=== PATIENT | female | born 1985 | race Caucasian/White ===

== ENCOUNTER 2023-01-23 10:30 | Outpatient (OUT) | payer OTHER, SELFPAY ==
--- NOTE | 2023-01-23 10:41 | XR_ITS ---
The [address] [address] Patient Name: GENESIS MORALES MRN: [id number] date: 1985 Sex: F Assigned Patient Location: [facility] Current Patient Location: [facility] Accession/Order Number: [id number] Exam Date: 01/23/2023 10:50 Report Date: 01/23/2023 13:54 At the request of: WILLA SOTOMAYOR Procedure: XR ankle LT min 3V EXAM: XR ankle LT min 3V HISTORY: RIGHT ANKLE PAIN COMPARISON: None. TECHNIQUE: 3 views Findings/impression: Sideplate fixation screws and plate to the distal fibula with comminuted mildly displaced fracture. No significant healing. Sideplate fixation screws and plate to the distal tibia with comminuted mildly displaced fracture. No significant healing. Soft tissue swelling. Electronically authenticated by: LON LUGO Date: 01/23/2023 13:54
== END 2023-01-23 10:31 ==
LOC: RAD 10:31
PROVIDERS: PCP Physician Assistant; Visit Provider Physician Assistant
DX: S82.842A Displaced bimalleolar fracture of left lower leg, initial encounter for closed fracture (principal); X58.XXXA Exposure to other specified factors, initial encounter; Z96.7 Presence of other bone and tendon implants
CPT/HCPCS: 73610

== ENCOUNTER 2023-02-13 09:34 | Outpatient (OUT) | payer OTHER, SELFPAY ==
--- NOTE | 2023-02-13 09:37 | XR_ITS ---
The [address] [address] Patient Name: GENESIS MORALES MRN: [id number] date: 1985 Sex: F Assigned Patient Location: [facility] Current Patient Location: [facility] Accession/Order Number: [id number] Exam Date: 02/13/2023 09:36 Report Date: 02/13/2023 11:13 At the request of: NATALI WU Procedure: XR ankle LT min 3V EXAM: XR ankle LT min 3V HISTORY: Left ankle pain. Recent ORIF. COMPARISON: 01/23/2023. TECHNIQUE: 3 views left ankle. FINDINGS/IMPRESSION: Left tibial and femoral plate and screw ORIF again seen. Expected degree of minimal internal healing of the distal tibial and fibular fractures. On the AP and oblique views, the third most superior fibular internal fixation screw appears in place, although on lateral view may be free floating and not fixated. Also possible decreased apposition of the upper fibular plate on lateral view. Attention on follow-up. Mild residual diffuse soft tissue edema left ankle with intact-appearing mortise. Electronically authenticated by: MENDOZA PEREIRA Date: 02/13/2023 11:13
== END 2023-02-13 09:35 | disposition home or self-care (01) ==
LOC: RAD 09:34
PROVIDERS: PCP Physician Assistant; Visit Provider Physician Assistant
DX: S82.842D Displaced bimalleolar fracture of left lower leg, subsequent encounter for closed fracture with routine healing (principal)
CPT/HCPCS: 73610

== ENCOUNTER 2023-03-06 10:10 | Outpatient (OUT) | payer OTHER, SELFPAY ==
--- NOTE | 2023-03-06 10:14 | XR_ITS ---
The [address] [address] Patient Name: GENESIS MORALES MRN: [id number] date: 1985 Sex: F Assigned Patient Location: [facility] Current Patient Location: [facility] Accession/Order Number: [id number] Exam Date: 03/06/2023 10:13 Report Date: 03/06/2023 11:13 At the request of: ANTALI WU Procedure: XR ankle LT min 3V PROCEDURE: XR ankle LT min 3V DATE: 03/06/2023 9:13 AM CDT COMPARISONS: Plain radiographs from 02/13/2023 and 01/23/2023. Also CT of the ankle 12/26/2022 CLINICAL INDICATION: LEFT ANKLE PAIN FINDINGS: There is evidence of open reduction internal fixation of the distal tibia and fibula. Distal tibial fracture fragments are held in good position and alignment in all projections, stable from previous exam. The ankle mortise remains intact, stable. Fixation plate is noted at lateral aspect distal metadiaphyseal region of the fibula. There is 3 to 4 mm of lateral displacement of the distal fracture fragment. This is slightly better seen than on 02/13/2023. It is similar to 01/23/2023. Overall, the distal fibula appears to be held in good position and alignment. Today's image projection is likely slightly different than previous exam.. XR/XR ankle LT min 3V IMPRESSION: Postop changes left ankle remain stable from previous postop exams. . Electronically authenticated by: RICH VILLANUEVA Date: 03/06/2023 11:13
== END 2023-03-06 10:11 | disposition home or self-care (01) ==
LOC: RAD 10:10
PROVIDERS: Visit Provider Physician Assistant
DX: S93.05XD Dislocation of left ankle joint, subsequent encounter (principal)
CPT/HCPCS: 73610

== ENCOUNTER 2023-03-20 08:31 | Outpatient (OUT) | payer OTHER, SELFPAY ==
--- NOTE | 2023-03-20 08:34 | CT_ITS ---
The [address] [address] Patient Name: GENESIS MORALES MRN: [id number] date: 1985 Sex: F Assigned Patient Location: CT Current Patient Location: CT Accession/Order Number: [id number] Exam Date: 03/20/2023 08:45 Report Date: 03/20/2023 11:11 At the request of: NATALI WU Procedure: CT ankle LT wo con EXAMINATION: CT ankle LT wo con HISTORY: Displaced bimalleolar fracture of left lower leg ; follow-up surgery COMPARISON: XR ankle left 02/13/2023 TECHNIQUE: Multi-planar CT images were created without and/or with IV contrast according to examination type. Dose reduction techniques were achieved by using automated exposure control and/or adjustment of mA and/or kV according to patient size and/or use of iterative reconstruction technique. FINDINGS: BONES: Prior posterior malleolus fracture with increasing density of the fracture line in stable repair via posterior plate and screws. Prior comminuted distal fibular fracture without appreciable callus formation or increased density are fracture lines. Stable plate and screw repair without evidence of hardware fracture or loosening. SOFT TISSUES: Mild subcutaneous edema within the lower ankle and proximal foot. EFFUSION: None visible. OTHER: Negative. CT/CT ankle LT wo con IMPRESSION: 1. Stable surgical changes without hardware failure or change in alignment. 2. No appreciable evidence of osseous healing of the comminuted distal fibula fracture, however, alignment is maintained; continued follow-up recommended. 3. Small amount of early bone healing changes involving the nondisplaced posterior malleolus fracture. Electronically authenticated by: RADHA YARBROUGH Date: 03/20/2023 11:11
== END 2023-03-20 08:32 | disposition home or self-care (01) ==
LOC: CT 08:31
PROVIDERS: Visit Provider Physician Assistant
DX: S82.842D Displaced bimalleolar fracture of left lower leg, subsequent encounter for closed fracture with routine healing (principal); S93.05XD Dislocation of left ankle joint, subsequent encounter
CPT/HCPCS: 73700

== ENCOUNTER 2023-04-16 09:47 | Outpatient (OUT) | payer OTHER, SELFPAY ==
--- NOTE | 2023-04-16 | XR_ITS ---
The [address] [address] Patient Name: GENESIS MORALES MRN: [id number] date: 1985 Sex: F Assigned Patient Location: [facility] Current Patient Location: [facility] Accession/Order Number: [id number] Exam Date: 04/16/2023 10:11 Report Date: 04/16/2023 10:32 At the request of: PHYLLIS CROWLEY Procedure: XR ankle LT min 3V XR ankle LT min 3V, 04/16/2023 10:11 AM EDT, [place]001 INDICATION: LEFT ANKLE PAIN COMPARISON: Radiographs from 03/06/2023 TECHNIQUE: AP, lateral and oblique views of the ankle are submitted. FINDINGS: Evidence of internal plate and screw fixation along the distal tibia and fibula is again noted. The components appear intact and unchanged in alignment. There is evidence of a healing across the distal fibular fracture. No change in alignment is noted. The joint spaces are maintained. There is moderate soft tissue swelling. XR/XR ankle LT min 3V IMPRESSION: Stable status post internal fixation of distal tibial and fibular fractures. No acute fracture or component failure is identified. Moderate soft tissue swelling. Electronically authenticated by: OCHOA STAFFORD Date: 04/16/2023 10:32
== END 2023-04-16 09:48 | disposition home or self-care (01) ==
LOC: RAD 09:47
PROVIDERS: Visit Provider Podiatrist Foot & Ankle Surgery
DX: M25.572 Pain in left ankle and joints of left foot (principal)
CPT/HCPCS: 73610

== ENCOUNTER 2023-05-14 14:07 | Outpatient (OUT) | payer OTHER, SELFPAY ==
--- NOTE | 2023-05-14 | XR_ITS ---
The [address] [address] Patient Name: GENESIS MORALES MRN: [id number] date: 1985 Sex: F Assigned Patient Location: [facility] Current Patient Location: [facility] Accession/Order Number: [id number] Exam Date: 05/14/2023 10:35 Report Date: 05/14/2023 13:21 At the request of: PHYLLIS CROWLEY Procedure: XR ankle LT min 3V STUDY: XR ankle LT min 3V, [id number] HISTORY: LEFT ANKLE PAIN COMPARISON: Left ankle x-rays 04/16/2023. FINDINGS: Plate and screw fixation hardware from the right distal tibia and fibular ORIF is intact and similar alignment compared with 04/16/2023. No new or worsening lucency at the bone hardware interfaces. Mildly displaced obliquely oriented fracture of the distal diaphysis of the fibula is similar. No acute fracture. No dislocation or suspicious osseous lesion. XR/XR ankle LT min 3V IMPRESSION: Similar appearance of the ankle compared with 04/16/2023. No new or worsening bony abnormality demonstrated. Electronically authenticated by: ELMER BAH Date: 05/14/2023 13:21
== END 2023-05-14 14:08 | disposition home or self-care (01) ==
LOC: RAD 14:07
PROVIDERS: Visit Provider Podiatrist Foot & Ankle Surgery
DX: S82.842A Displaced bimalleolar fracture of left lower leg, initial encounter for closed fracture (principal)
CPT/HCPCS: 73610

== ENCOUNTER 2023-06-25 09:30 | Outpatient (OUT) | payer OTHER, SELFPAY ==
--- NOTE | 2023-06-25 | XR_ITS ---
The [address] [address] Patient Name: GENESIS MORALES MRN: [id number] date: 1985 Sex: F Assigned Patient Location: [facility] Current Patient Location: [facility] Accession/Order Number: [id number] Exam Date: 06/25/2023 09:45 Report Date: 06/25/2023 17:58 At the request of: PHYLLIS CROWLEY Procedure: XR ankle LT min 3V Exam: Radiographs: XR ankle LT min 3V Reason for exam: LEFT ANKLE PAIN Comparison: Plain films dated 05/14/2023 XR/XR ankle LT min 3V IMPRESSION: Distal tibia and fibula plate and screw internal fixation, hardware is intact. Distal left fibula fracture remains lucent. Mild left ankle soft tissue swelling. Remainder of the left ankle radiographs is unremarkable. Electronically authenticated by: WILLA BLACK Date: 06/25/2023 17:58
== END 2023-06-25 09:31 | disposition home or self-care (01) ==
LOC: RAD 09:30
PROVIDERS: Visit Provider Podiatrist Foot & Ankle Surgery
DX: M25.572 Pain in left ankle and joints of left foot (principal)
CPT/HCPCS: 73610

== ENCOUNTER 2023-08-13 13:02 | Outpatient (OUT) | payer BC, SELFPAY ==
--- NOTE | 2023-08-13 | XR_ITS ---
[address] [address] Patient Name: GENESIS MORALES MRN: [id number] date: 1985 Sex: F Assigned Patient Location: [facility] Current Patient Location: [facility] Accession/Order Number: [id number] Exam Date: 08/13/2023 13:18 Report Date: 08/15/2023 06:40 At the request of: PHYLLIS CROWLEY Procedure: XR ankle LT min 3V PROCEDURE: XR ankle LT min 3V HISTORY: LEFT ANKLE PAIN COMPARISON: XR ankle left 06/25/2023, 05/14/2023 FINDINGS: BONES:Prior surgical repair of posterior malleolus fracture and distal fibular fracture via plate and screws. Persistent fracture line of the distal fibula without appreciable significant callus formation. No hardware fracture or loosening. SOFT TISSUES:No visible soft tissue swelling. EFFUSION:None visible. OTHER: Negative. XR/XR ankle LT min 3V IMPRESSION: 1. Stable surgical changes without evidence of hardware failure or change in alignment. 2. Persistent incomplete osseous union of the distal fibula; stable to minimal progression. Electronically authenticated by: RADHA YARBROUGH Date: 08/15/2023 06:40
== END 2023-08-13 13:03 | disposition home or self-care (01) ==
LOC: RAD 13:02
PROVIDERS: Visit Provider Podiatrist Foot & Ankle Surgery
DX: S93.05XD Dislocation of left ankle joint, subsequent encounter (principal)
CPT/HCPCS: 73610

== ENCOUNTER 2023-08-21 09:23 | Outpatient (OUT) | payer BC, SELFPAY ==
--- OUTSIDE RECORDS SUMMARY | 2023-08-21 09:26 | XMS_ITS | CCD ---
Author Name Unknown Address [address] [place] [address] Organization [facility] Care Team Providers Care Kier Hand Name Role Phone Unavailable Primary Care Provider UnavailKWAKU Killian Attending Unavailable ROMIE, DR SKY Suarez Admitting Unavailable WEST, DR MARGY Fowler Consulting Unavailable MISC, DR GALARZA Primary Care Unavailable ROMIE, DR SKY Suarez Attending Unavailable ZENON, DR RADHA Newsome Consulting Unavailable ROMIE, DR SKY Suarez Consulting Unavailable PHYLLIS CROWLEY Consulting Unavailable SONIAKAITLIN Consulting Unavailable BRAN ., WILLA RAMÍREZ Consulting Unavailable THOMAS II, PROSPER Consulting Unavailable OHLIGERTARYN Consulting Unavailable HAY ., DR VALENTIN Attending Unavailable HAY ., DR VALENTIN Admitting Unavailable MISC, DR GALARZA Primary Care Unavailable ISABEL ., ROQUE READ Consulting UnavailJOY Allen Consulting Unavailable PHYLLIS CROWLEY Admitting Unavailable PHYLLIS CROWLEY Attending Unavailable MISC, DR GALARZA Primary Care Unavailable PHYLLIS CROWLEY Attending Unavailable MISC, DR GALARZA Primary Care Unavailable ZENON, DR RADHA Newsome Consulting Unavailable PHYLLIS CROWLEY Admitting Unavailable PHYLLIS CROWLEY Consulting Unavailable PHYLLIS CROWLEY Attending Unavailable PHYLLIS CROWLEY Admitting Unavailable WEST, DR MARGY Fowler Consulting Unavailable MISC, DR GALARZA Primary Care Unavailable PHYLLIS CROWLEY Consulting Unavailable NATALI WU Referring Unavailable NATALI WU Referring Unavailable Allergies Allergy Classification Reported Allergen(s) Allergy Type Date of Onset Reaction(s) Facility (1 source) Sulfonamides (Antibiotic) Propensity to adverse reactions to drug 9 Other (See Comments) [place], [place] (1 source) Sulfonamides (Antibiotic) Drug allergy (disorder) 3 [facility] (1 source) Sulfonamides (Antibiotic); Translations: [SULFA (SULFONAMIDE ANTIBIOTICS)] Propensity to adverse reactions to drug (disorder) [facility] Medications Current Medications Medication Drug Class(es) Dates Sig (Normalized) Sig (Original) acetaminophen 325 mg oral tablet (1 source) take 2 tablets by mouth every six hours as needed for pain acetaminophen (TYLENOL) 325 MG tablet Take 650 mg by mouth every 6 hours as needed for Pain 0 Active ibuprofen 800 mg oral tablet (2 sources) Nonsteroidal Anti-inflammatory Drug Start: 07-04-2019 take 1 tablet by mouth every six hours as needed for pain ibuprofen (ADVIL;MOTRIN) 800 MG tablet Take 1 tablet by mouth every 6 hours as needed for Pain 10 tablet 0 07/04/2019 Active Start: 07-04-2019 ibuprofen (ADV IL;MOTRIN) tablet 800 mg Problems Problem Classification Problem Date Documented Da te Episodic/Chronic Anxiety disorders (1 source) Generalized anxiety disorder; Translations: [GENERALIZED ANXIETY DISORDER] Onset: 01-14-2023 Chronic E Codes: Natural/environment (1 source) Overexertion from prolonged static or awkward postures, initial encounter; Translations: [OVEREXERT PROLNG STAT/AWK PST INIT] Onset: 01-14-2023 Episodic Fracture of lower limb (7 sources) Unspecified fracture of lower end of left tibia, initial encounter for closed fracture; Translations: [Displaced fracture of lateral malleolus of left fibula, initial encounter for closed fracture] Onset: 12-25-2022 Episodic Fracture of upper limb (1 source) Closed fracture of triquetral bone of wrist; Translations: [Closed nondisplaced fracture of triquetrum of right wrist, initial encounter] Episodic Joint disorders and dislocations; trauma-related (4 sources) Dislocation of left ankle joint, subsequent encounter; Translations: [DISLOCATION LT ANKLE JOINT SUBSQT] Onset: 12-26-2022 Episodic Other injuries and conditions due to external causes (3 sources) Unspecified injury of left ankle, initial encounter; Translations: [UNSPECIFIED INJURY LT ANKLE INITIAL] Onset: 12-24-2022 Episodic Other non-traumatic joint disorders (4 sources) Pain in left ankle and joints of left foot; Translations: [PAIN IN LEFT ANKLE] Onset: 12-25-2022 Episodic Substance-related disorders (1 source) Nicotine dependence, cigarettes, uncomplicated; Translations: [NICOTINE DEPEND CIGARETTES UNCOMP] Onset: 01-14-2023 Chronic Results Test Name Value Interpretation Reference Range Facil ity CBC AUTO DIFFon 01-02-2023 BASO # 0.1 103/ul Normal 0.0-0.1 [facility] Comment on above: Performed By: #### C BC #### [facility] [address] [address] [address] Jesse Forrest Basophils/100 WBC (Bld) 0.4 % Normal 0.2-2.0 [facility] Comment on above: Performed By: #### C BC #### [facility] [address] [address] [address] Jesse Forrest EO # 0.3 103/ul Normal 0.0-0.7 [facility] Comment on above: Performed By: #### C BC #### [facility] [address] [address] [address] Jesse Forrest Eosinophils/100 WBC (Bld) 3.0 % Normal 0.9-7.0 [facility] Comment on above: Performed By: #### C BC #### [facility] [address] [address] [address] Jesse Forrest Erythrocyte distribution width (RBC) [Ratio] 13.1 % Normal 11.0-15.0 [facility] Comment on above: Performed By: #### C BC #### [facility] [address] [address] [address] Jesse Forrest Hematocrit (Bld) [Volume fraction] 43.1 % Normal 36.0-48.0 [facility] Comment on above: Performed By: #### C BC #### [facility] [address] [address] [address] Jesse Forrest Hemoglobin (Bld) [Mass/Vol] 14.3 g/dL Normal 12.0-16.0 [facility] Comment on above: Performed By: #### C BC #### [facility] [address] [address] [address] Jesse Forrest IG # 0.05 10e3/ul Critically high 0.00-0.03 [facility] Comment on above: Performed By: #### C BC #### [facility] [address] [place] [address] Dr. Jesse Forrest IG % 0.4 % Normal 0.0-0.5 [facility] Comment on above: Performed By: #### C BC #### [facility] [address] [place] [address] Dr. Jesse Forrest LYMPH # 2.4 103/ul Normal 1.2-3.8 [facility] Comment on above: Performed By: #### C BC #### [facility] [address] [place] [address] Dr. Jesse Forrest Lymphocytes/100 WBC (Bld) 21.1 % Normal 20.5-60.0 [facility] Comment on above: Performed By: #### C BC #### [facility] [address] [place] [address] Dr. Jesse Forrest MANUAL DIFF REQ NO Normal [facility] Comment on above: Performed By: #### C BC #### [facility] [address] [place] [address] Dr. Jesse Forrest MCH (RBC) [Entitic mass] 28.4 pg Normal 26.7-34.0 [facility] Comment on above: Performed By: #### C BC #### [facility] [address] [place] [address] Dr. Jesse Forrest MCHC (RBC) [Mass/Vol] 33.2 g/dL Normal 29.9-35.2 [facility] Comment on above: Performed By: #### C BC #### [facility] [address] [place] [address] Dr. Jesse Forrest MCV (RBC) [Entitic vol] 85.7 fL Normal 81.0-99.0 [facility] Comment on above: Performed By: #### C BC #### [facility] [address] [place] [address] Dr. Jesse Forrest MONO # 0.8 103/ul Normal 0.3-0.8 [facility] Comment on above: Performed By: #### C BC #### [facility] [address] [place] [address] Dr. Jesse Forrest Monocytes/100 WBC (Bld) 6.9 % Normal 1.7-12.0 [facility] Comment on above: Performed By: #### C BC #### [facility] [address] [place] [address] Dr. Jesse Forrest NEUT # 7.6 103/ul Critically high 1.4-6.5 [facility] Comment on above: Performed By: #### C BC #### [facility] [address] [place] [address] Dr. Jesse Forrest Neutrophils/100 WBC (Bld) 68.2 % Normal 43.0-75.0 [facility] Comment on above: Performed By: #### C BC #### [facility] [address] [place] [address] Dr. Jesse Forrest Platelet mean volume (Bld) [Entitic vol] 10.3 fL Normal 9.5-13.5 [facility] Comment on above: Performed By: #### C BC #### [facility] [address] [place] [address] Dr. Jesse Forrest PLT 284 103/ul Normal 150-450 [facility] Comment on above: Performed By: #### C BC #### [facility] [address] [place] [address] Dr. Jesse Forrest RBC 5.03 106/ul Normal 4.20-5.40 [facility] Comment on above: Performed By: #### C BC #### [facility] [address] [place] [address] Dr. Jesse Forrest WBC 11.2 103/ul Critically high 4.0-11.0 [facility] Comment on above: Performed By: #### C BC #### [facility] [address] [place] [address] Dr. Jesse Forrest POINT OF CARE GLUCOSEon 05- Glucose [Mass/Vol] 138 mg/dL Critically high 74-106 [facility] Comment on above: Performed By: #### P OCGLUC #### [facility] [address] [place] [address] Dr. Jesse Forrest Glucose [Mass/Vol] 105 mg/dL Normal 74-106 [facility] Comment on above: Performed By: #### P OCGLUC #### [facility] [address] [address] [address] Jesse Forrest PREG HCG QUALon 01-02-2023 , QUAL Negative Normal NEGATIVE [facility] Comment on above: Performed By: #### P REG #### [facility] [address] [address] [address] ANKLE LT WO CONon 023 CT ANKLE LT WO CON EXAMINATION: CT ANKLE LT WO CON HISTORY: Closed bimalleolar fracture COMPARISON: No relevant comparison available. TECHNIQUE: Multi-planar CT images were created without IV contrast. Dose reduction techniques were achieved by using automated exposure control and/or adjustment of mA and/or kV according to patient size and/or use of iterative reconstruction technique. FINDINGS: BONES: Minimally displaced fracture fragments involving the tip and medial margin of the medial malleolus. Mildly displaced and slightly comminuted large fracture fragments involving the posterior malleolus. Markedly comminuted fracture of the distal fibula involving the distal diaphysis, metaphysis, and extension into the distal articular surface; 5 mm posterior displacement of the fracture at level of the distal diaphysis. Talar dome appears normally situated within the tibial plafond. Multiple tiny cortical fragments along the dorsal anterior margin of the talus suggesting avulsion fragments. SOFT TISSUES: Prominent subcutaneous edema surrounding the ankle and proximal foot. EFFUSION: None visible. OTHER: Negative. IMPRESSION: 1. Acute, comminuted trimalleolar fractures as detailed above. Electronically authenticated by: RADHA YARBROUGH Date: 2022-12-27 06:44 Normal [facility] XR TIB_FIB LT 2Von 3 XR TIB_FIB LT 2V EXAM: XR TIB_FIB LT 2V HISTORY: Pain of left ankle joint COMPARISON: None. TECHNIQUE: AP and lateral views on 4 films FINDINGS: There is a comminuted spiral fracture of the distal fibula. The distal fracture fragment shows mild lateral angulation. Also, there is a vertically oriented fracture through the posterior tibial malleolus. There is proximal displacement of the posterior fracture fragment by approximately 3 mm. No definite fracture of the medial malleolus is identified, though could potentially be obscured by overlying cast material. Associated soft tissue swelling. IMPRESSION: Fractures of the lateral and posterior ankle malleoli. Electronically authenticated by: Jasmyn MANRIQUE Date: 2022-12-24 19:27 Normal [facility] XR WRIST RIGHT (MIN 3 VIEWS) on 07-12-2019 XR WRIST RIGHT (MIN 3 VIEWS) Begin Addendum #1 VOICE RECOGNITION ERROR: Second sentence of Findings should state: There is anatomic alignment with questionable triquetral fracture. Original Report EXAM: XR WRIST RIGHT (MIN 3 VIEWS) HISTORY: Reason for exam:->pain s/p fall COMPARISON: None. TECHNIQUE: 3 views of the right wrist. FINDINGS: There is normal mineralization. There is anatomic alignment with a history of triquetral fracture. There is mild soft tissue swelling involving the dorsum of the wrist. IMPRESSION: Questionable triquetral fracture. Recommend correlation for point tenderness. Interpreted by: Marino Garcia MD Signed by: Marino Garcia MD 07/12/19 Edited Result - FINAL Normal [facility] XR WRIST RIGHT (MIN 3 VIEWS) on 07-03-2019 Questionable triquetral fracture. Recommend correlation for point tenderness. [facility] EXAM: XR WRIST RIGHT (MIN 3 VIEWS) HISTORY: Reason for exam:->pain s/p fall COMPARISON: None. TECHNIQUE: 3 views of the right wrist. FINDINGS: There is normal mineralization. There is anatomic alignment with a history of triquetral fracture. There is mild soft tissue swelling involving the dorsum of the wrist. [facility] Incoming Radiant Results From [facility] - 07/03/2019 11:58 PM EST EXAM: XR WRIST RIGHT (MIN 3 VIEWS) HISTORY: Reason for exam:->pain s/p fall COMPARISON: None. TECHNIQUE: 3 views of the right wrist. FINDINGS: There is normal mineralization. There is anatomic alignment with a history of triquetral fracture. There is mild soft tissue swelling involving the dorsum of the wrist. IMPRESSION: Questionable triquetral fracture. Recommend correlation for point tenderness. [facility] Vital Signs Date Time Vital Sign Value Performing Clinician Faci lity 07-03-2019 23:27-0500 Body Temperature 98.49 [degF] [place] 07-03-2019 23:27-0500 BP Diastolic 62 mm[Hg] [place], [place] 07-03-2019 23:27-0500 BP Systolic 128 mm[Hg] [place] 07-03-2019 23:27-0500 Pulse (Heart Rate) 115 /min [place], [place] 07-03-2019 23:27-0500 Pulse Oximetry 100 % [place] 07-03-2019 23:27-0500 Respiratory Rate 17 /min [place] Encounters Encounter Date Encounter Type Care Provider Facility Start: 08-19-2023 ambulatory [facility] Start: 07-21-2023 End: 08-18-2023 ambulatory [facility] Start: 01-03-2023 Encounter for other preprocedural examination PHYLLIS CROWLEY [facility] Start: 01-02-2023 End: 01-03-[address] SKY GRUBBS Facility:[facility] Start: 12-30-2022 End: 12-31-2022 ambulatory PHYLLIS CROWLEY Facility:[facility] Start: 12-30-2022 End: 12-31-2022 Encounter for other preprocedural examination PHYLLIS CROWLEY Facility:[facility] Start: 12-26-2022 End: 12-27-2022 ambulatory PHYLLIS CROWLEY Facility:[facility] Start: 12-25-2022 End: 12-26-2022 [facility] Start: 12-24-2022 End: 12-24-[address] BARBIE BOGGS . Facility:[facility] Start: 07-04-2019 End: 07-04-2019 Emergency department patient visit [facility] [facility] Start: 07-03-2019 End: 07-04-2019 Emergency department patient visit Kwaku Phillips Work Phone: [facility] ED Comment on above: Closed nondisplaced fracture of triquetrum of right wrist, initial encounter (Primary Dx) Procedures Date Procedure Procedure Detail Performing Clinician Start: 07-04-2019 VOLAR OCL SPLINT ARM ALBA PHILLIPS Start: 07-04-2019 Radex wrist complete minimum 3 views KWAKU PHILLIPS Start: 07-03-2019 Radex wrist complete minimum 3 views Kwaku Phillips Work Phone: Plan of Treatment Date Care Activity Detail Author Start: 04-18-2019 Influenza vaccination Flu vaccine (# 1) [place], [place] Start: 2005 Cervical cancer screen Cervical canc er screen [place], [place] Start: 1999 HIV screen HIV screen [place], [place] Start: 1995 DTaP/Tdap/Td vaccine (1 - Tdap) DTaP/Tdap/Td vaccine (1 - Tdap) [place], [place] Start: 1985 Varicella Vaccine (1 of 2 - 2-dose childhood series) Varicella Vaccine (1 of 2 - 2-dose childhood series) [place] Payers Date Payer Category Payer Unknown [id number] 2019 Unknown [facility] xxxxxxxxxx 2019-Present [phone] [address] [place] [address] xxxxxxxxxx [id number] 2019 Unknown [id number] 1984 Unknown [id number] 1984 Unknown [id number] 1984 Unknown [id number] 1984 Unknown [id number] 1984 Unknown [id number] 1984 Unknown [id number] 1984 Unknown [id number] 1984 Unknown [id number] 1959 Unknown [id number] Social History Date Type Detail Facility Start: [facility]03-[facility] [place], [place] History of tobacco use Cigarette Smoker M [place], [place] Start: 07-03-2019 Cigarettes smoked current (pack per day) - Reported [place], [place] Start: 07-03-2019 Alcohol intake Lifetime non-d miguel (finding) [place] Start: 07-03-2019 History SDOH Alcohol Frequency 1 [place], [place] Sex Assigned At Not on file [place] Clinical Note 01-03-2023 Note Date & Type Note Facility 01-03-2023 Note PROCEDURE: XR ANKLE LT MIN 3 V COMPARISON: 01/02/2023, 12/25/2022 HISTORY: Pain FINDINGS: BONES:open reduction and internal fixation of distal tibia and fibular fractures with posterior plates and screws. Stable complex underlying fractures with no interval change. No new fracture or dislocation. SOFT TISSUES:Postsurgical soft tissue swelling and subcutaneous emphysema EFFUSION:None visible. OTHER: Detail obscured by a posterior splint IMPRESSION: Open reduction internal fixation of complex distal tibia and fibula fractures Electronically authenticated by: MARGY NESS Date: 2023-01-03 07:18 [facility] Clinical Note 01-03-2023 Note Date & Type Note Facility 01-03-2023 Note PROCEDURE: XR ANKLE LT 2V HISTORY: Pain ; trimalleolar fracture COMPARISON: XR ankle left 12/25/2022 FINDINGS: BONES:Multiple intraoperative spot fluoroscopic images demonstrate surgical repair of distal fibula and posterior tibial fractures via plate and screws. SOFT TISSUES:Expected intraoperative findings. EFFUSION:None visible. OTHER: Negative. IMPRESSION: 1. Surgical repair of distal fibular fracture. 2. Surgical repair of posterior malleolus fracture. 3. Restored alignment of the tibiotalar joint. Electronically authenticated by: RADHA YARBROUGH Date: 2023-01-03 06:48 [facility] Clinical Note 12-25-2022 Note Date & Type Note Facility 12-25-2022 Note PROCEDURE: XR ANKLE LT MIN 3 V COMPARISON: 12/24/2022 HISTORY: Pain of left ankle joint FINDINGS: BONES:Lucency through the medial malleolus suspicious for a nondisplaced fracture. Complex fracture distal tibia, stable. Posterior malleolus fracture.r ankle instability with widening of the lateral tibiotalar joint space and angulation of the ankle mortise SOFT TISSUES:Diffuse soft tissue swelling EFFUSION:None visible. OTHER: Negative. IMPRESSION: Trimalleolar fracture with ankle instability evidenced by asymmetry of the tibiotalar joint space Electronically authenticated by: MARGY NESS Date: 2022-12-25 17:45 [facility] Discharge Instructions * Attachments The following attachments cannot be sent through Care Everywhere. 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 INFORMATION SOURCE (unrecogn ized section and content) DATE CREATED AUTHOR 07/13/2019 Kavita sinclair DATE CREATED AUTHOR AUTHOR'S ORGANIZ ATION 01/27/2023 [facility] DATE CREATED AUTHOR AUTHOR'S ORGANIZ ATION 08/21/2023 [facility] FOR RECORDS PERTAINING TO PATIENTS WHO ARE OR HAVE BEEN ENROLLED IN A CHEMICAL DEPENDENCY/SUBSTANCEABUSE PROGRAM, SOME INFORMATION MAY BE OMITTED. This clinical summary was aggregated from multiple sources. Caution should be exercised in using it in the provision of clinical care. This summary normalizes information from multiple sources, and as a consequence, information in this document may materially change the coding, format and clinical context of patient data. In addition, data may be omitted in some cases. CLINICAL DECISIONS SHOULD BE BASED ON THE PRIMARY CLINICAL RECORDS. [facility]. provides no warranty or guarantee of the accuracy or completeness of information in this document.
--- NOTE | 2023-08-21 09:28 | CT_ITS ---
The [address] [address] Patient Name: GENESIS MORALES MRN: [id number] date: 1985 Sex: F Assigned Patient Location: CT Current Patient Location: CT Accession/Order Number: [id number] Exam Date: 08/21/2023 09:30 Report Date: 08/21/2023 11:36 At the request of: PHYLLIS CROWLEY Procedure: CT ankle LT wo con Exam Type: CT LEFT ANKLE Exam Date and Time: 08/21/2023 9:30 AM EST Indication: 38 years old Female with left ankle pain, prior ORIF Comparison: Plain radiograph 08/13/2023, prior CT scan 03/20/2023 TECHNIQUE: Axial CT images of the left ankle were obtained without intravenous contrast. Coronal and sagittal reformatted images were obtained. Dose reduction techniques were achieved by using automated exposure control and/or adjustment of mA and/or kV according to patient size and/or use of iterative reconstruction technique. FINDINGS: There are postsurgical changes from ORIF of a distal fibula as well as a distal tibia fracture. The tibial hardware appears intact and properly positioned. There is near completely healed posterior malleolus fracture. There is persistent mild cortical step off of the posterior malleolus of approximately 2 to 3 mm in maximum of the posterior tibial plafond articular surface. Multiple small ossific fragments are noted along the inferior margin the medial malleolus. Unchanged alignment of an incompletely healed distal fibular fracture. Bony callus formation is noted. No significant osseous fusion identified of the fracture margins more distal comminuted aspect of the lateral malleolus fracture is near completely healed. Lucency surrounding the 2 proximal most fibular fixation screws is unchanged. The talar dome is congruent. The bones are osteopenic, likely secondary to disuse. No new fracture identified. CT/CT ankle LT wo con IMPRESSION: 1. Near completely healed posterior malleolus fracture with persistent cortical step off of the posterior tibial plafond articular surface . The tibial hardware appears intact. 2. Unchanged position of the fibular hardware with near completely healed more distal comminuted portion of the fracture. No significant bony bridging of the more proximal aspect of the fracture. Electronically authenticated by: OLGA LIDIA SHARIF Date: 08/21/2023 11:36
== END 2023-08-21 09:24 | disposition home or self-care (01) ==
LOC: CT 09:23
PROVIDERS: Visit Provider Podiatrist Foot & Ankle Surgery
DX: S82.892D Other fracture of left lower leg, subsequent encounter for closed fracture with routine healing (principal); Z98.890 Other specified postprocedural states
CPT/HCPCS: 73700

== ENCOUNTER 2023-09-11 09:53 | Outpatient (OUT) | payer BC, OTHER, SELFPAY ==
--- OUTSIDE RECORDS SUMMARY | 2023-09-11 09:56 | XMS_ITS | CCD ---
Author Name Unknown Address [address] [place] [address] Organization [facility] Care Team Providers Care Clinical Research Analyst Name Role Phone Unavailable Primary Care Provider [...] reactions to drug 9 Other (See Comments) [place], [place] (1 source) Sulfonamides (Antibiotic) Drug allergy (disorder) 3 [facility] (1 source) Sulfonamides (Antibiotic); Translations: [SULFA [...] 01-02-2023 BASO # 0.1 103/ul Normal 0.0-0.1 [facility] Comment on above: Performed By: #### C BC #### [facility] [address] [address] [address] Jesse Forrest Basophils/100 WBC (Bld) 0.4 % Normal 0.2-2.0 [facility] Comment on above: Performed By: #### C BC #### [facility] [address] [address] [address] Jesse Forrest EO # 0.3 103/ul Normal 0.0-0.7 [facility] Comment on above: Performed By: #### C BC #### [facility] [address] [address] [address] Jesse Forrest Eosinophils/100 WBC (Bld) 3.0 % Normal 0.9-7.0 [facility] Comment on above: Performed By: #### C BC #### [facility] [address] [address] [address] Jesse Forrest Erythrocyte distribution width (RBC) [Ratio] 13.1 % Normal 11.0-15.0 [facility] Comment on above: Performed By: #### C BC #### [facility] [address] [address] [address] Jesse Forrest Hematocrit (Bld) [Volume fraction] 43.1 % Normal 36.0-48.0 [facility] Comment on above: Performed By: #### C BC #### [facility] [address] [address] [address] Jesse Forrest Hemoglobin (Bld) [Mass/Vol] 14.3 g/dL Normal 12.0-16.0 [facility] Comment on above: Performed By: #### C BC #### [facility] [address] [address] [address] Jesse Forrest IG # 0.05 10e3/ul Critically high 0.00-0.03 [facility] Comment on above: Performed By: #### C BC #### [facility] [address] [place] [address] Dr. Jesse Forrest IG % 0.4 % Normal 0.0-0.5 [facility] Comment on above: Performed By: #### C BC #### [facility] [address] [place] [address] Dr. Jesse Forrest LYMPH # 2.4 103/ul Normal 1.2-3.8 [facility] Comment on above: Performed By: #### C BC #### [facility] [address] [place] [address] Dr. Jesse Forrest Lymphocytes/100 WBC (Bld) 21.1 % Normal 20.5-60.0 [facility] Comment on above: Performed By: #### C BC #### [facility] [address] [place] [address] Dr. Jesse Forrest MANUAL DIFF REQ NO Normal [facility] Comment on above: Performed By: #### C BC #### [facility] [address] [place] [address] Dr. Jesse Forrest MCH (RBC) [Entitic mass] 28.4 pg Normal 26.7-34.0 [facility] Comment on above: Performed By: #### C BC #### [facility] [address] [place] [address] Dr. Jesse Forrest MCHC (RBC) [Mass/Vol] 33.2 g/dL Normal 29.9-35.2 [facility] Comment on above: Performed By: #### C BC #### [facility] [address] [place] [address] Dr. Jesse Forrest MCV (RBC) [Entitic vol] 85.7 fL Normal 81.0-99.0 [facility] Comment on above: Performed By: #### C BC #### [facility] [address] [place] [address] Dr. Jesse Forrest MONO # 0.8 103/ul Normal 0.3-0.8 [facility] Comment on above: Performed By: #### C BC #### [facility] [address] [place] [address] Dr. Jesse Forrest Monocytes/100 WBC (Bld) 6.9 % Normal 1.7-12.0 [facility] Comment on above: Performed By: #### C BC #### [facility] [address] [place] [address] Dr. Jesse Forrest NEUT # 7.6 103/ul Critically high 1.4-6.5 [facility] Comment on above: Performed By: #### C BC #### [facility] [address] [place] [address] Dr. Jesse Forrest Neutrophils/100 WBC (Bld) 68.2 % Normal 43.0-75.0 [facility] Comment on above: Performed By: #### C BC #### [facility] [address] [place] [address] Dr. Jesse Forrest Platelet mean volume (Bld) [Entitic vol] 10.3 fL Normal 9.5-13.5 [facility] Comment on above: Performed By: #### C BC #### [facility] [address] [place] [address] Dr. Jesse Forrest PLT 284 103/ul Normal 150-450 [facility] Comment on above: Performed By: #### C BC #### [facility] [address] [place] [address] Dr. Jesse Forrest RBC 5.03 106/ul Normal 4.20-5.40 [facility] Comment on above: Performed By: #### C BC #### [facility] [address] [place] [address] Dr. Jesse Forrest WBC 11.2 103/ul Critically high 4.0-11.0 [facility] Comment on above: Performed By: #### C BC #### [facility] [address] [place] [address] Dr. Jesse Forrest POINT OF CARE GLUCOSEon 05- Glucose [Mass/Vol] 138 mg/dL Critically high 74-106 [facility] Comment on above: Performed By: #### P OCGLUC #### [facility] [address] [place] [address] Dr. Jesse Forrest Glucose [Mass/Vol] 105 mg/dL Normal 74-106 [facility] Comment on above: Performed By: #### P OCGLUC #### [facility] [address] [address] [address] Jesse Forrest PREG HCG QUALon 01-02-2023 , QUAL Negative Normal NEGATIVE [facility] Comment on above: Performed By: #### P REG #### [facility] [address] [address] [address] ANKLE LT WO [...] by: RADHA YARBROUGH Date: 2022-12-27 06:44 Normal [facility] XR TIB_FIB LT 2Von 3 XR TIB_FIB [...] Jasmyn MANRIQUE Date: 2022-12-24 19:27 Normal [facility] XR WRIST RIGHT (MIN 3 VIEWS) [...] MD 07/12/19 Edited Result - FINAL Normal [facility] XR WRIST RIGHT (MIN 3 VIEWS) on 07-03-2019 Questionable triquetral fracture. Recommend correlation for point tenderness. [facility]ENTER[facility]aign[facility]CRM EXAM: XR WRIST RIGHT (MIN 3 VIEWS) HISTORY: Reason for exam:->pain s/p fall COMPARISON: None. TECHNIQUE: 3 views of the right wrist. FINDINGS: There is normal mineralization. There is anatomic alignment with a history of triquetral fracture. There is mild soft tissue swelling involving the dorsum of the wrist. [facility] [place], Mhpn Incoming Radiant Results From [employer] - 07/03/2019 11:58 PM EST EXAM: XR WRIST RIGHT (MIN 3 VIEWS) HISTORY: Reason for exam:->pain s/p fall COMPARISON: None. TECHNIQUE: 3 views of the right wrist. FINDINGS: There is normal mineralization. There is anatomic alignment with a history of triquetral fracture. There is mild soft tissue swelling involving the dorsum of the wrist. IMPRESSION: Questionable triquetral fracture. Recommend correlation for point tenderness. [email or web address] [facility]aign[facility]CR[facility] Vital Signs Date Time Vital Sign Value Performing Clinician Faci lity 07-03-2019 23:27-0500 Body Temperature 98.49 [degF] [place], [place] 07-03-2019 23:27-0500 BP Diastolic 62 mm[Hg] [place], [place] 07-03-2019 23:27-0500 BP Systolic 128 mm[Hg] [place] 07-03-2019 23:27-0500 Pulse (Heart Rate) 115 /min [place], [place] 07-03-2019 23:27-0500 Pulse Oximetry 100 % [place], [place] 07-03-2019 23:27-0500 Respiratory Rate 17 /min [place] Encounters Encounter Date Encounter Type Care Provider Facility Start: 08-19-2023 ambulatory [facility] Start: 07-21-2023 End: 08-18-2023 ambulatory [facility] Start: 01-03-2023 Encounter for other preprocedural examination PHYLLIS CROWLEY [facility] Start: 01-02-2023 End: 01-03-[address] SKY GRUBBS Facility:[facility] Start: 12-30-2022 End: 12-31-2022 ambulatory PHYLLIS CROWLEY Facility:[facility] Start: 12-30-2022 End: 12-31-2022 Encounter for other preprocedural examination PHYLLIS CROWLEY Facility:[facility] Start: 12-26-2022 End: 12-27-2022 ambulatory PHYLLIS CROWLEY Facility:[facility] Start: 12-25-2022 End: 12-26-2022 [facility] Start: 12-24-2022 End: 12-24-[address] BARBIE BOGGS . Facility:[facility] Start: 07-04-2019 End: 07-04-2019 Emergency department patient visit [facility] Start: 07-03-2019 End: 07-04-2019 Emergency department patient visit Kwaku Phillips Work Phone: [facility] ED Comment on above: Closed nondisplaced [...] 04-18-2019 Influenza vaccination Flu vaccine (# 1) [place], [place] Start: 2005 Cervical cancer screen Cervical canc er screen [place], [place] Start: 1999 HIV screen HIV screen [place], [place] Start: 1995 DTaP/Tdap/Td vaccine (1 - Tdap) DTaP/Tdap/Td vaccine (1 - Tdap) [place], [place] Start: 1985 Varicella Vaccine (1 of 2 - 2-dose childhood series) Varicella Vaccine (1 of 2 - 2-dose childhood series) [place] Payers Date Payer Category Payer Unknown [id number] 2019 Unknown [facility] xxxxxxxxxx 2019-Present [phone] [address] [place] [address] xxxxxxxxxx [id number] 2019 Unknown [id number] 1984 Unknown [id number] 1984 Unknown [id number] 1984 Unknown [id number] 1984 Unknown [id number] 1984 Unknown [id number] 1984 Unknown [id number] 1984 Unknown [id number] 1984 Unknown [id number] 1959 Unknown [id number] Social History Date Type Detail Facility Start: [facility]-03-[facility] [place] History of tobacco use Cigarette Smoker M [place], [place] Start: 07-03-2019 Cigarettes smoked current (pack per day) - Reported [place] Start: 07-03-2019 Alcohol intake Lifetime non-d miguel (finding) [place] Start: 07-03-2019 History SDOH Alcohol Frequency 1 [place], [place] Sex Assigned At Not on file [place] Clinical Note 01-03-2023 Note Date & [...] authenticated by: MARGY NESS Date: 2023-01-03 07:18 [facility] Clinical Note 01-03-2023 Note Date & Type [...] by: RADHA YARBROUGH Date: 2023-01-03 06:48 [facility] Clinical Note 12-25-2022 Note Date & Type [...] by: MARGY NESS Date: 2022-12-25 17:45 [facility] Discharge Instructions * Attachments The following attachments cannot be sent through Care Everywhere. * Splint or Immobilizer Use (Maltese) documented in this encounter Assessments Diagnosis Closed nondisplaced fracture of triquetrum of right wrist, initial encounter- Primary Advance Directives No Advanced Directives Records FoundDocuments on File Type Date Recorded Patient Clinical Data Assistant Expl anation Advance Directives and Living Will Power of Telephone Instrument Supervisor Summary Purpose Family History No Family History [...] CREATED AUTHOR AUTHOR'S ORGANIZ ATION 01/27/2023 [facility] DATE CREATED AUTHOR AUTHOR'S ORGANIZ ATION 08/21/2023 [facility] FOR RECORDS PERTAINING TO PATIENTS WHO [...] BE BASED ON THE PRIMARY CLINICAL RECORDS. [facility] [employer] [facility]. provides no warranty or guarantee of the accuracy or completeness of information in this document.
--- NOTE | 2023-09-11 10:57 | P.GSHP_ITS ---
History of Present Illness History of Present Illness Chief complaint: Displaced Fracture lateral malleolus left Fibula Narrative: Patient presents for preadmission testing. Please see HPI from Dr. Quintanilla dated 08/26/2023. Review of Systems ROS Narrative Please see ROS from Dr. Quintanilla dated 08/26/2023. [facility] Medical History (Updated 09/11/23 @ 10:58 by Yu Mena NP) Pain due to internal prosthetic device ?T85.848A - Pain due to other internal prosthetic devices, implants and grafts, initial encounter (ICD-10) Sprain of tibiofibular ligament of left ankle ?S93.432A - Sprain of tibiofibular ligament of left ankle, initial encounter (ICD-10) Closed fracture of malleolus with nonunion ?S82.899K - Other fracture of unspecified lower leg, subsequent encounter for closed fracture with nonunion (ICD-10) Displaced fracture of lateral malleolus ?S82.63XA - Displaced fracture of lateral malleolus of unspecified fibula, initial encounter for closed fracture (ICD-10) Depression ?F32.A - Depression, unspecified (ICD-10) Anxiety ?F41.9 - Anxiety disorder, unspecified (ICD-10) COVID-19 ?U07.1 - COVID-19 (ICD-10) Heartburn ?R12 - Heartburn (ICD-10) Postoperative nausea and vomiting ?R11.2 - Nausea with vomiting, unspecified (ICD-10) ?Z98.890 - Other specified postprocedural states (ICD-10) Surgical History (Updated 09/11/23 @ 10:22 by Yu Mena NP) History of section ?Z98.891 - History of uterine scar from previous surgery (ICD-10) History of ankle surgery (01/02/23) ?Z98.890 - Other specified postprocedural states (ICD-10) Social History (Updated 09/11/23 @ 10:16 by Yu Mena NP) Within the past year, how often did you have a drink containing alcohol: monthly or less Smoking status: Former smoker 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 Highest level of school completed/degree received: some college, no degree Meds Home Medications and Allergies Home Medications Medication Instructions Recorded Confirmed Type bupropion HCl 150 mg 24 hr tablet, 150 mg PO DAILY 09/11/23 09/11/23 History extended release buspirone 5 mg tablet 5 mg PO BID 09/11/23 09/11/23 History cholecalciferol (vitamin D3) 25 3,000 unit PO DAILY 09/11/23 09/11/23 History mcg (1,000 unit) tablet multivitamin (Daily Multi-Vitamin 1 tab PO DAILY 09/11/23 09/11/23 History tablet) Allergies Allergy/AdvReac Type Severity Reaction Status Date / Time Sulfa (Sulfonamide Allergy Hives Verified 09/11/23 10:12 Antibiotics) Exam Narrative Exam Narrative: Constitutional: Awake, alert, comfortable, well-appearing, nontoxic, interactive, vital signs as charted Head: Normocephalic, atraumatic Neck: Supple, normal appearance, normal range of motion, no meningeal signs, no lymphadenopathy Respiratory: No respiratory distress, breath sounds clear Cardiovascular: Regular rate and rhythm, strong and regular heart tones Skin: No rashes or induration, no lesions, only visible skin inspected Neuro: No neurological deficits, normal sensation Psychiatric: Oriented ?3, normal affect Assessment and Plan Assessment and Plan (1) Displaced fracture of lateral malleolus: (2) Closed fracture of malleolus with nonunion: (3) Sprain of tibiofibular ligament of left ankle: (4) Pain due to internal prosthetic device: Plan Excision of left fibular nonunion, ORIF of fibula, removal of hardware, stress exam under anesthesia, ligament repairs as needed scheduled with Dr. Quintanilla 09/22/2023.
== END 2023-09-11 09:54 | disposition home or self-care (01) ==
PROVIDERS: Visit Provider Podiatrist Foot & Ankle Surgery
DX: Z01.818 Encounter for other preprocedural examination (principal); S82.62XK Displaced fracture of lateral malleolus of left fibula, subsequent encounter for closed fracture with nonunion; T85.848A Pain due to other internal prosthetic devices, implants and grafts, initial encounter
CPT/HCPCS: G0463

== ENCOUNTER 2023-09-22 07:04 | Day surgery (SDC) | payer OTHER, SELFPAY ==
[2023-09-11 10:49] VITALS: BP 122/81; PULSE 64; RESP 18; TEMP 36.3; O2SAT 96; BMI 39.4
[2023-09-22] VITALS (9 sets, daily range): BP systolic 104–156; BP diastolic 56–89; PULSE 93–130; RESP 14–20; TEMP 37.3; O2SAT 93–96; BMI 39.4
--- NOTE | 2023-09-22 | FL_ITS ---
[address] [address] Patient Name: GENESIS MORALES MRN: [id number] date: 1985 Sex: F Assigned Patient Location: SURGOUT Current Patient Location: [facility] Accession/Order Number: [id number] Exam Date: 09/22/2023 09:39 Report Date: 09/22/2023 12:36 At the request of: PHYLLIS CROWLEY Procedure: FL fluoroscopy <1hr NON-READ EXAM: FL fluoroscopy <1hr NON-READ HISTORY: TECHNIQUE: FINDINGS: Please see Operative Report. Electronically authenticated by: RADIOLOGIST NO Date: 09/22/2023 12:36
--- OUTSIDE RECORDS SUMMARY | 2023-09-22 07:08 | XMS_ITS | CCD ---
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 Role Phone Unavailable Primary Care Provider [...] Care Unavailable ISABEL ., ROQUE READ Consulting Unav[employer]JYO [employer] Unavailable PHYLLIS CROWLEY Admitting Unavailable [...] reactions to drug 9 Other (See Comments) [place], [place] (1 source) Sulfonamides (Antibiotic) Drug allergy (disorder) 3 [facility] Repository (1 source) Sulfonamides (Antibiotic); Translations: [SULFA [...] 01-02-2023 BASO # 0.1 103/ul Normal 0.0-0.1 [facility] Comment on above: Performed By: #### C BC #### [facility] [address] [address] [address] Jesse Forrest Basophils/100 WBC (Bld) 0.4 % Normal 0.2-2.0 [facility] Comment on above: Performed By: #### C BC #### [facility] [address] [address] [address] Jesse Forrest EO # 0.3 103/ul Normal 0.0-0.7 [facility] Comment on above: Performed By: #### C BC #### [facility] [address] [address] [address] Jesse Forrest Eosinophils/100 WBC (Bld) 3.0 % Normal 0.9-7.0 [facility] Comment on above: Performed By: #### C BC #### [facility] [address] [address] [address] Jesse Forrest Erythrocyte distribution width (RBC) [Ratio] 13.1 % Normal 11.0-15.0 [facility] Comment on above: Performed By: #### C BC #### [facility] [address] [address] [address] Jesse Forrest Hematocrit (Bld) [Volume fraction] 43.1 % Normal 36.0-48.0 [facility] Comment on above: Performed By: #### C BC #### [facility] [address] [address] [address] Jesse Forrest Hemoglobin (Bld) [Mass/Vol] 14.3 g/dL Normal 12.0-16.0 [facility] Comment on above: Performed By: #### C BC #### [facility] [address] [address] [address] Jesse Forrest IG # 0.05 10e3/ul Critically high 0.00-0.03 [facility] Comment on above: Performed By: #### C BC #### [facility] [address] [place] [address] Dr. Jesse Forrest IG % 0.4 % Normal 0.0-0.5 [facility] Comment on above: Performed By: #### C BC #### [facility] [address] [place] [address] Dr. Jesse Forrest LYMPH # 2.4 103/ul Normal 1.2-3.8 [facility] Comment on above: Performed By: #### C BC #### [facility] [address] [place] [address] Dr. Jesse Forrest Lymphocytes/100 WBC (Bld) 21.1 % Normal 20.5-60.0 [facility] Comment on above: Performed By: #### C BC #### [facility] [address] [place] [address] Dr. Jesse Forrest MANUAL DIFF REQ NO Normal [facility] Comment on above: Performed By: #### C BC #### [facility] [address] [place] [address] Dr. Jesse Forrest MCH (RBC) [Entitic mass] 28.4 pg Normal 26.7-34.0 [facility] Comment on above: Performed By: #### C BC #### [facility] [address] [place] [address] Dr. Jesse Forrest MCHC (RBC) [Mass/Vol] 33.2 g/dL Normal 29.9-35.2 [facility] Comment on above: Performed By: #### C BC #### [facility] [address] [place] [address] Dr. Jesse Forrest MCV (RBC) [Entitic vol] 85.7 fL Normal 81.0-99.0 [facility] Comment on above: Performed By: #### C BC #### [facility] [address] [place] [address] Dr. Jesse Forrest MONO # 0.8 103/ul Normal 0.3-0.8 [facility] Comment on above: Performed By: #### C BC #### [facility] [address] [place] [address] Dr. Jesse Forrest Monocytes/100 WBC (Bld) 6.9 % Normal 1.7-12.0 [facility] Comment on above: Performed By: #### C BC #### [facility] [address] [place] [address] Dr. Jesse Forrest NEUT # 7.6 103/ul Critically high 1.4-6.5 [facility] Comment on above: Performed By: #### C BC #### [facility] [address] [place] [address] Dr. Jesse Forrest Neutrophils/100 WBC (Bld) 68.2 % Normal 43.0-75.0 [facility] Comment on above: Performed By: #### C BC #### [facility] [address] [place] [address] Dr. Jesse Forrest Platelet mean volume (Bld) [Entitic vol] 10.3 fL Normal 9.5-13.5 [facility] Comment on above: Performed By: #### C BC #### [facility] [address] [place] [address] Dr. Jesse Forrest PLT 284 103/ul Normal 150-450 [facility] Comment on above: Performed By: #### C BC #### [facility] [address] [place] [address] Dr. Jesse Forrest RBC 5.03 106/ul Normal 4.20-5.40 [facility] Comment on above: Performed By: #### C BC #### [facility] [address] [place] [address] Dr. Jesse Forrest WBC 11.2 103/ul Critically high 4.0-11.0 [facility] Comment on above: Performed By: #### C BC #### [facility] [address] [place] [address] Dr. Jesse Forrest POINT OF CARE GLUCOSEon 05- Glucose [Mass/Vol] 138 mg/dL Critically high 74-106 [facility] Comment on above: Performed By: #### P OCGLUC #### [facility] [address] [place] [address] Dr. Jesse Forrets Glucose [Mass/Vol] 105 mg/dL Normal 74-106 [facility] Comment on above: Performed By: #### P OCGLUC #### [facility] [address] [address] [address] Jesse Forrest PREG HCG QUALon 01-02-2023 , QUAL Negative Normal NEGATIVE [facility] Comment on above: Performed By: #### P REG #### [facility] [address] [address] [address] ANKLE LT WO [...] by: RADHA YARBROUGH Date: 2022-12-27 06:44 Normal [facility] XR TIB_FIB LT 2Von 3 [...] Jasmyn MANRIQUE Date: 2022-12-24 19:27 Normal [facility] XR WRIST RIGHT (MIN 3 VIEWS) on [...] MD 07/12/19 Edited Result - FINAL Normal [facility] XR WRIST RIGHT (MIN 3 VIEWS) on 07-03-2019 Questionable triquetral fracture. Recommend correlation for point tenderness. [facility] [email or web address] MEDICAL CENTERTrendrating EXAM: XR WRIST RIGHT (MIN 3 VIEWS) HISTORY: Reason for exam:->pain s/p fall COMPARISON: None. TECHNIQUE: 3 views of the right wrist. FINDINGS: There is normal mineralization. There is anatomic alignment with a history of triquetral fracture. There is mild soft tissue swelling involving the dorsum of the wrist. [facility] Center[facility] [place], Mhpn Incoming Radiant Results From [employer] - 07/03/2019 11:58 PM EST EXAM: XR WRIST RIGHT (MIN 3 VIEWS) HISTORY: Reason for exam:->pain s/p fall COMPARISON: None. TECHNIQUE: 3 views of the right wrist. FINDINGS: There is normal mineralization. There is anatomic alignment with a history of triquetral fracture. There is mild soft tissue swelling involving the dorsum of the wrist. IMPRESSION: Questionable triquetral fracture. Recommend correlation for point tenderness. [facility] SD[facility] Vital Signs Date Time Vital Sign Value Performing Clinician Faci lity 07-03-2019 23:27-0500 Body Temperature 98.49 [degF] [place], [place] 07-03-2019 23:27-0500 BP Diastolic 62 mm[Hg] [place], [place] 07-03-2019 23:27-0500 BP Systolic 128 mm[Hg] [place] 07-03-2019 23:27-0500 Pulse (Heart Rate) 115 /min [place], [place] 07-03-2019 23:27-0500 Pulse Oximetry 100 % [place], [place] 07-03-2019 23:27-0500 Respiratory Rate 17 /min [place] Encounters Encounter Date Encounter Type Care Provider Facility Start: 08-19-2023 End: 09-18-2023 Pending sale to [facility] Start: 07-21-2023 End: 08-18-2023 ambulatory [facility] Start: 01-03-2023 Encounter for other preprocedural examination PHYLLIS CROWLEY [facility] Start: 01-02-2023 End: 01-03-[address] SKY GRUBBS Facility:[facility] Start: 12-30-2022 End: 12-31-2022 ambulatory PHYLLIS CROWLEY Facility:[facility] Start: 12-30-2022 End: 12-31-2022 Encounter for other preprocedural examination PHYLLIS CROWLEY Facility:[facility] Start: 12-26-2022 End: 12-27-2022 ambulatory PHYLLIS CROWLEY Facility:[facility] Start: 12-25-2022 End: 12-26-2022 ambulatory PHYLLIS CROWLEY Facility:[facility] Start: 12-24-2022 End: 12-24-[address] BARBIE Lang Facility:[facility] Start: 07-04-2019 End: 07-04-2019 Emergency department patient visit [place] Daniela [facility] Start: 07-03-2019 End: 07-04-2019 Emergency department patient visit Kwaku Albarran Work Phone: [facility] ED Comment on above: Closed nondisplaced fracture of triquetrum of right wrist, initial encounter (Primary Dx) Procedures Date Procedure Procedure Detail Performing Clinician Start: 07-04-2019 VOLAR OCL SPLINT ARM ALBA ARCHIE JACQUELINE Start: 07-04-2019 Radex wrist complete minimum 3 views KWAKU JACQUELINE Start: 07-03-2019 Radex wrist complete minimum 3 views Kwaku Suarez Jacqueline Work Phone: Plan of Treatment Date Care Activity Detail Author Start: 04-18-2019 Influenza vaccination Flu vaccine (# 1) [place], [place] Start: 2005 Cervical cancer screen Cervical canc er screen [place], [place] Start: 1999 HIV screen HIV screen [place], [place] Start: 1995 DTaP/Tdap/Td vaccine (1 - Tdap) DTaP/Tdap/Td vaccine (1 - Tdap) [place] Start: 1985 Varicella Vaccine (1 of 2 - 2-dose childhood series) Varicella Vaccine (1 of 2 - 2-dose childhood series) [place] Payers Date Payer Category Payer Unknown [id number] 2019 Unknown [facility] xxxxxxxxxx 2019-Present [phone] [place] [id number] xxxxxxxxxx [id number] 2019 Unknown [id number] 1984 Unknown [id number] 1984 Unknown [id number] 1984 Unknown [id number] 1984 Unknown [id number] 1984 Unknown [id number] 1984 Unknown [id number] 1984 Unknown [id number] 1984 Unknown [id number] 1959 Unknown [id number] Social History Date Type Detail Facility Start: 07-03-2019 Tobacco smoking stat us [facility] Current every day smoker [place], [place] History of tobacco use Cigarette Smoker M [place], [place] Start: 07-03-2019 Cigarettes smoked current (pack per day) - Reported [place] Start: 07-03-2019 Alcohol intake Lifetime non-d miguel (finding) [place] Start: 07-03-2019 History SDOH Alcohol Frequency 1 [place], [place] Sex Assigned At Not on file [place] Clinical Note 01-03-2023 Note Date & [...] authenticated by: MARGY NESS Date: 2023-01-03 07:18 [facility] Clinical Note 01-03-2023 Note Date [...] by: RADHA YARBROUGH Date: 2023-01-03 06:48 [facility] Clinical Note 12-25-2022 Note Date & Type [...] authenticated by: MARGY NESS Date: 2022-12-25 17:45 [facility] Discharge Instructions * Attachments The following attachments cannot be sent through Care Everywhere. 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 [facility] [facility]. provides no warranty or guarantee of the accuracy or completeness of information in this document.
[2023-09-22 07:20] LABS: Basophils Percent Auto 0.4 % (0.2-2.0); Eosinophils Absolute Auto 0.2 10^3/uL (0.0-0.7); Eosinophils Percent Auto 2.4 % (0.9-7.0); Hematocrit 41.7 % (36.0-48.0); Immature Granulocytes Abs Auto 0.02 10^3/uL (0.00-0.03); Immature Granulocytes Pct Auto 0.2 % (0.0-0.5); Lymphocytes Percent Auto 21.7 % (20.5-60.0); Mean Corpuscular HGB Conc 33.6 g/dL (29.9-35.2); Mean Corpuscular Volume 83.4 fL (81.0-99.0); Mean Platelet Volume 10.8 fL (9.5-13.5); Monocytes Absolute Auto 0.6 10^3/uL (0.3-0.8); Monocytes Percent Auto 6.2 % (1.7-12.0); Neutrophils Absolute Auto 6.5 10^3/uL (1.4-6.5); Neutrophils Percent Auto 69.1 % (43.0-75.0); Platelet Count 251 10^3/uL (150-450); Red Cell Distribution Width 13.2 % (11.0-15.0); White Blood Count 9.3 10^3/uL (4.0-11.0)
[2023-09-22 07:36] LABS: Glucometer 119 mg/dL (74-106)
[2023-09-22] MEDS: PREGABALIN 75 MG CAPSULE 150 MG PO (07:37)
[2023-09-22] MEDS: SCOPOLAMINE 1 MG/3 DAYS TRANSDERM PATCH 1 PATCH TD (07:38)
[2023-09-22] MEDS: CELECOXIB 200 MG CAPSULE PO (07:38)
[2023-09-22] MEDS: FAMOTIDINE 20 MG TABLET PO (07:38)
[2023-09-22] MEDS: ACETAMINOPHEN 500 MG TABLET 1000 MG PO (07:38)
[2023-09-22] MEDS: LACTATED RINGER'S SOLUTION 1,000 ML 50 ML IV (07:44)
[2023-09-22 08:03] LABS: HCG Quantitative <1 mIU/mL
[2023-09-22] MEDS: CEFAZOLIN SODIUM/DEXTROSE,ISO 2 GM/50 ML PIGGYBACK IV (08:59)
--- NOTE | 2023-09-22 11:19 | XR_ITS ---
The [address] [address] Patient Name: GENESIS MORALES MRN: [id number] date: 1985 Sex: F Assigned Patient Location: [facility] Current Patient Location: Accession/Order Number: [id number] Exam Date: 09/22/2023 12:05 Report Date: 09/23/2023 06:20 At the request of: JOSIANE MARCIAL Procedure: XR ankle LT min 3V PROCEDURE: XR ankle LT min 3V HISTORY: Postop x-ray pacq. COMPARISON: XR ankle left 08/13/2023 FINDINGS: BONES:Prior surgical repair of posterior malleolus fracture via dorsal plate and screws. Prior repair of distal fibular fracture via a lateral plate and screws. Interval placement of an additional screw at level of fracture line within the distal fibula diaphysis. No hardware fracture loosening. SOFT TISSUES:Mild anterior soft tissue swelling and small amount of residual subcutaneous air post surgery. EFFUSION:None visible. OTHER: Negative. XR/XR ankle LT min 3V IMPRESSION: 1. Interval placement of an additional screw and distal fibular diaphysis for repair of prior fracture. 2. No evidence of hardware failure or change in alignment. 3. Stable alignment and ongoing bone healing of tibia and fibular fractures. Electronically authenticated by: RADHA YARBROUGH Date: 09/23/2023 06:20
[2023-09-22 12:14] LABS: Glucometer 126 mg/dL (74-106)
--- NOTE | 2023-09-22 12:31 | P.ORON_ITS ---
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 Her tibial fracture healed without issue however her fibular fracture has not shown progression in healing for greater than six months despite prolonged immobilization and use of non-invasive bone stimulator. Fortunately her hardware has remained stable but she has had persistent pain over the lateral ankle. I reviewed the potential risks and benefits of continued nonsurgical versus surgical treatment for her nonunion and the patient elected to undergo revision. She has no history of infection to the left ankle INTRAOPERATIVE FINDINGS: stable plate fixation spanning nonunited fibular fracture was noted. Once the plate was removed there was a posterior butterfly fragment surrounded by fibrous tissue with no evidence of osseous healing. Hypertrophic bone ends were noted on the primary fracture line of the fibula with surrounding fibrosis. No sign of infection and bone quality was within normal limits. PROCEDURES IN DETAIL: Patient was identified in pre op and consent was reviewed. Correct side and site were identified and marked. Pre-op antibiotics were started. Patient was brought to OR suite and place on table in a supine position. General anesthesia was administered. Tourniquet applied. Operative extremity was prepped and draped in usual sterile fashion. Formal time-out was performed and the foot/ankle were exsanguinated and tourniquet inflated. Fibula: A longitudinal incision placed over the fibular malleolus was undertaken. Combination of sharp and blunt dissection gained access to the fibular fracture in all bleeders were coagulated. the plate and screw construct transfixing the fibular fracture was removed with appropriate screwdriver. screw holes were lightly curetted until healthy bleeding was noted. The fracture fragments were then debrided sharply excising all fibrous tissue which included a butterfly fragment from the posterior fibula which was sent as specimen. There is no signs of infection. Then the primary fracture line of the fibula was further debrided both with a scalpel and rongeur. The fracture was hypertrophic in nature and was drilled with a 2.0 mm drill bit noting healthy bleeding bone. Bone allograft consisting of proteios and concelltrate were mixed on back table and a portion was packed into the fracture. Then utilizing manual reduction techniques and reduction clamps the fibula was then reduced. 2.7 mm cortical lag screw was placed across the fracture line and compression was noted. 3.5 mm locking 1/3 tubular plate plate was placed over the fibula which was held in place temporarily. Then locking and nonlocking screws were placed according to the funds development director's standard directions. Stability across the fracture was noted and all temporary fixation was removed. The site was irrigated. the remaining bone graft was then packed around the fracture. The ankle was stressed in all planes and was notably stable which included the ankle collateral ligaments and syndesmosis. All surgical sites were irrigated with copious sterile saline and incisions were closed in layers. The tourniquet was dropped with a prompt hyperemic response. A dry sterile dressing consisting of Xeroform on the incisions followed by 4 x 4 gauze, ABDs, and Kerlix were applied. Multiple layers of cast padding were then applied to ensure all bony prominences were well-padded. A plaster posterior splint was then applied which was held in place by Galdino wraps. Capillary refill time to all digits was evaluated and had appropriate response. Patient tolerated the procedure and anesthesia well was transferred to the recovery room with vital signs stable and brisk capillary refill time to the toes. POSTOPERATIVE PLAN: Discharge home under family's care Post op instructions provided verbally and written prescription(s) were placed in chart NWB operative foot/ankle x1 wks Follow-up in 1 week - at which time patient will likely be transitioned to partial protected weightbearing in cam boot depending on swelling, pain and the status of the incision Implants: Vilex plate/screws Anesthesia: regional and General-LMA Surgeon: Chris Quintanilla Benefits Specialist: Jorge Crook Estimated blood loss (mL): 10 Pathology: other (fibular fracture fragment) Condition: stable Disposition: PACU
== END 2023-09-22 13:15 | disposition home or self-care (01) ==
PROVIDERS: Visit Provider Podiatrist Foot & Ankle Surgery
PROC: (CPT 1480; principal; 2023-09-22 08:30)
DX: S82.62XK Displaced fracture of lateral malleolus of left fibula, subsequent encounter for closed fracture with nonunion (principal); T85.848A Pain due to other internal prosthetic devices, implants and grafts, initial encounter; S93.432A Sprain of tibiofibular ligament of left ankle, initial encounter; F32.A Depression, unspecified; F41.9 Anxiety disorder, unspecified; Z86.16 Personal history of COVID-19; Z79.899 Other long term (current) drug therapy
CPT/HCPCS: 20680; 27726; 36415; 64445; 64450; 73610; 76000; 76942; 82948; 84702; 85025; 88307; 88311; C1713; J0131; J0690; J1100; J1170; J1885; J2250; J2405; J2704; J2795

== ENCOUNTER 2023-10-15 12:58 | Outpatient (OUT) | payer OTHER, SELFPAY ==
--- NOTE | 2023-10-15 | XR_ITS ---
The [address] [address] Patient Name: GENESIS MORALES MRN: [id number] date: 1985 Sex: F Assigned Patient Location: Current Patient Location: Accession/Order Number: [id number] Exam Date: 10/15/2023 13:02 Report Date: 10/15/2023 14:34 At the request of: PHYLLIS CROWLEY Procedure: XR ankle LT min 3V PROCEDURE: XR ankle LT min 3V COMPARISON: 09/22/2023 HISTORY: LEFT ANKLE PAIN FINDINGS: BONES:Stable reduction internal fixation of the distal tibia and fibular fracture with plate and screws. No acute fracture or dislocation. No mechanical failure. Multiple screws protrude beyond the medial fibular cortex. Increased bony bridging along a distal fibular fracture SOFT TISSUES:Negative. No visible soft tissue swelling. EFFUSION:None visible. OTHER: Negative. XR/XR ankle LT min 3V IMPRESSION: Stable reduction internal fixation of distal tibia and fibular fractures Electronically authenticated by: MARGY NESS Date: 10/15/2023 14:34
== END 2023-10-15 12:59 | disposition home or self-care (01) ==
LOC: EC 12:59
PROVIDERS: Visit Provider Podiatrist Foot & Ankle Surgery
DX: M25.572 Pain in left ankle and joints of left foot (principal); Z98.890 Other specified postprocedural states
CPT/HCPCS: 73610

== ENCOUNTER 2023-11-05 13:53 | Outpatient (OUT) | payer OTHER, SELFPAY ==
--- NOTE | 2023-11-05 | XR_ITS ---
The [address] [address] Patient Name: GENESIS MORALES MRN: [id number] date: 1985 Sex: F Assigned Patient Location: Current Patient Location: Accession/Order Number: [id number] Exam Date: 11/05/2023 14:05 Report Date: 11/06/2023 07:14 At the request of: PHYLLIS CROWLEY Procedure: XR ankle LT min 3V PROCEDURE: XR ankle LT min 3V HISTORY: LEFT ANKLE PAIN COMPARISON: XR ankle left 10/07/2023 FINDINGS: BONES:Prior surgical repair of distal tibia via dorsal plate and screws. Prior repair of distal fibular fracture via a lateral plate and screws. No hardware fracture loosening. SOFT TISSUES:No visible soft tissue swelling. EFFUSION:None visible. OTHER: Negative. XR/XR ankle LT min 3V IMPRESSION: 1. Stable surgical changes without evidence of hardware failure or change in alignment. Electronically authenticated by: RADHA YARBROUGH Date: 11/06/2023 07:14
--- OUTSIDE RECORDS SUMMARY | 2023-11-05 14:05 | XMS_ITS | CCD ---
Author Organization [facility] Care Team Providers Care Windows 7 Deployment Lead Name Role Phone Unavailable Primary Care Provider Unavailalbert PHILLIPS, KWAKU Suarez Attending Unavailable ROMIE, DR SKY Suarez Admitting Unavailable WEST, DR MARGY Fowler Consulting Unavailable MISC, DR GALARZA Primary Care Unavailable ROMIE, DR SKY Suarez Attending Unavailable ZENON, DR RADHA Newsome Consulting Unavailable MAURICEEREJerod, DR SKY Suarez Consulting Unavailable HIGHLANDER, PHYLLIS Ponce Consulting Unavailable SONIAKAITLIN Consulting Unavailable BRAN ., WILLA RAMÍREZ Consulting Unavailable THOMAS II, PROSPER Consulting Unavailable OHLIGERTARYN Consulting Unavailable FLAKITA ., DR VALENTIN Attending Unavailable HAY ., DR VALENTIN Admitting Unavailable MISC, DR GALARZA Primary Care Unavailable ISABEL ., ROQUE READ Consulting UnavailJOY Allen Consulting Unavailable PHYLLIS QUINTANILLA Admitting Unavailable SOCORRO, PHYLLIS Ponce Attending Unavailable ROSENDO, DR GALARZA Primary Care Unavailable PHYLLIS QUINTANILLA Attending Unavailable ROSENDO, DR GALARZA Primary Care Unavailable ZENON, DR RADHA Newsome Consulting Unavailable PHYLLIS QUINTANILLA Admitting Unavailable PHYLLIS QUINTANILLA Consulting Unavailable PHYLLIS QUINTANILLA Attending Unavailable PHYLLIS QUINTANILLA Admitting Unavailable THI, DR MARGY Fowler Consulting Unavailable ROSENDO, DR GALARZA Primary Care Unavailable PHYLLIS QUINTANILLA Consulting Unavailable NATALI WU Referring Unavailable NATALI WU Referring Unavailable Socorro, LOLI Ponce Attending Provider [phone] Phyllis Quintanilla Attending Unavailable Phyllis Quintanilla Admitting Unavailable Allergies Allergy Classification Reported Allergen(s) Allergy Type Date of Onset Reaction(s) Facility (1 source) Sulfonamides (Antibiotic) Propensity to adverse reactions to drug 9 Other (See Comments) [facility] [place] (1 source) Sulfonamides (Antibiotic) Drug allergy (disorder) 3 [facility] (1 source) Sulfonamides (Antibiotic); Translations: [SULFA [...] Results Test Name Value Interpretation Reference Range Isaías Jimenez 09-22-2023 L Specimen: BS Received: 09/23/23 Status: ROMEO Talbot Num: [id number] Spec Type: Surgical Subm Dr: Phyllis Quinatnilla DPM, MS Tissues: A Bone Fragments - Pathologic Fracture (LT FIBULA FX) Procedures: HE/2, Gross/Micro L5, Decalcification Age/ Patient Sex Location Account Attending Physician Lexy Lira 38/F LABELL [id number] Phyllis Quintanilla DPM, MS SPEC NUM: [id number] RECD: 09/23/23 STATUS: ROMEO TALBOT NUM: [id number] TILA: 09/22/[address]: Phyllis Quintanilla DPM, MS ENTERED: 09/23/[address]: True Durant SPEC TYPE: Surgical DEPT: JAKOB NATHAN ORDERED: HE/2, Gross/Micro L5, Decalcification ORDERED: HE/2, Gross/Micro L5, Decalcification Pathological Diagnosis Left fibula fracture, biopsy: Granulation tissue with necrotic bone. Clinical Information Displaced fracture lateral malleolus left fibula Gross Description Received in formalin labeled with the patient's name, date of and left fibula fracture is a 5.3 x 0.9 x 0.6 cm pace-white portion of long bone with adherent pace-varela rubbery tissue. The cut surface is pace-white, indurated with no discrete trabecular spaces. Entirely submitted following decalcification in one cassette labeled A1. CPT Codes 44214, 91888 -------- -------- Specimen: [id number] Received: 09/23/23-1237 Status: ROMEO Talbot Num: [id number] Spec Type: Surgical Subm Dr: Phyllis Quintanilla,LOLI, MS Tissues: A Bone Fragments - Pathologic Fracture (LT FIBULA FX) Procedures: HE/2, Gross/Micro L5, Decalcification -------- Patient: Lexy Lira [id number] (Continued) -------- Signed (signature on file) Lewis Hobbs MD 09/27/23 1024 [facility] CBC AUTO DIFFon 01-02-2023 BASO # 0.1 103/ul Normal 0.0-0.1 [facility] Comment on above: Performed By: #### C BC #### [facility] [address] [address] [address] Jesse Forrest Basophils/100 WBC (Bld) 0.4 % Normal 0.2-2.0 [facility] Comment on above: Performed By: #### C BC #### [facility] [address] [address] [address] Jesse Forrest EO # 0.3 103/ul Normal 0.0-0.7 [facility] Comment on above: Performed By: #### C BC #### [facility] [address] [place] [address] Dr. Jesse Forrest Eosinophils/100 WBC (Bld) 3.0 % Normal 0.9-7.0 [facility] Comment on above: Performed By: #### C BC #### [facility] [address] [place] [address] Dr. Jesse Forrest Erythrocyte distribution width (RBC) [Ratio] 13.1 % Normal 11.0-15.0 [facility] Comment on above: Performed By: #### C BC #### [facility] [address] [place] [address] Dr. Jesse Forrest Hematocrit (Bld) [Volume fraction] 43.1 % Normal 36.0-48.0 [facility] Comment on above: Performed By: #### C BC #### [facility] [address] [place] [address] Dr. Jesse Forrest Hemoglobin (Bld) [Mass/Vol] 14.3 g/dL Normal 12.0-16.0 [facility] Comment on above: Performed By: #### C BC #### [facility] [address] [place] [address] Dr. Jesse Forrest IG # 0.05 10e3/ul Critically high 0.00-0.03 [facility] Comment on above: Performed By: #### C BC #### [facility] [address] [place] [address] Dr. Jesse Forrest IG % 0.4 % Normal 0.0-0.5 [facility] Comment on above: Performed By: #### C BC #### [facility] [address] [place] [address] Dr. Jesse Forrest LYMPH # 2.4 103/ul Normal 1.2-3.8 [facility] Comment on above: Performed By: #### C BC #### [facility] [address] [place] [address] Dr. Jesse Forrest Lymphocytes/100 WBC (Bld) 21.1 % Normal 20.5-60.0 [facility] Comment on above: Performed By: #### C BC #### [facility] [address] [place] [address] Dr. Jesse Forrest MANUAL DIFF REQ NO Normal [facility] Comment on above: Performed By: #### C BC #### [facility] [address] [place] [address] Dr. Jesse Forrest MCH (RBC) [Entitic mass] 28.4 pg Normal 26.7-34.0 [facility] Comment on above: Performed By: #### C BC #### [facility] [address] [place] [address] Dr. Jesse Forrest MCHC (RBC) [Mass/Vol] 33.2 g/dL Normal 29.9-35.2 [facility] Comment on above: Performed By: #### C BC #### [facility] [address] [place] [address] Dr. Jesse Forrest MCV (RBC) [Entitic vol] 85.7 fL Normal 81.0-99.0 [facility] Comment on above: Performed By: #### C BC #### [facility] [address] [place] [address] Dr. Jesse Forrest MONO # 0.8 103/ul Normal 0.3-0.8 [facility] Comment on above: Performed By: #### C BC #### [facility] [address] [place] [address] Dr. Jesse Forrest Monocytes/100 WBC (Bld) 6.9 % Normal 1.7-12.0 [facility] Comment on above: Performed By: #### C BC #### [facility] [address] [place] [address] Dr. Jesse Forrest NEUT # 7.6 103/ul Critically high 1.4-6.[address] [facility] Comment on above: Performed By: #### C BC #### [facility] [address] [place] [address] Dr. Jesse Forrest Neutrophils/100 WBC (Bld) 68.2 % Normal 43.0-75.0 [facility] Comment on above: Performed By: #### C BC #### [facility] [address] [address] [address] Jesse Forrest Platelet mean volume (Bld) [Entitic vol] 10.3 fL Normal 9.5-13.5 [facility] Comment on above: Performed By: #### C BC #### [facility] [address] [address] [address] Jesse Forrest PLT 284 103/ul Normal 150-450 [facility] Comment on above: Performed By: #### C BC #### [facility] [address] [address] [address] Jesse Forrest RBC 5.03 106/ul Normal 4.20-5.40 [facility] Comment on above: Performed By: #### C BC #### [facility] [address] [address] [address] Jesse Forrest WBC 11.2 103/ul Critically high 4.0-11.0 [facility] Comment on above: Performed By: #### C BC #### [facility] [address] [address] [address] Jesse Forrest POINT OF CARE GLUCOSEon 12-16 Glucose [Mass/Vol] 138 mg/dL Critically high 74-106 [facility] Comment on above: Performed By: #### P OCGLUC #### [facility] [address] [address] [address] Jesse Forrest Glucose [Mass/Vol] 105 mg/dL Normal 74-106 [facility] Comment on above: Performed By: #### P OCGLUC #### [facility] [address] [address] [address] Jesse Forrest PREG HCG QUALon 01-02-2023 , QUAL Negative Normal NEGATIVE [facility] Comment on above: Performed By: #### P REG #### [facility] [address] [address] [address] ANKLE LT WO CONon 023 CT ANKLE LT WO CON EXAMINATION: CT ANKL E LT WO CON HISTORY: Closed bimalleolar fracture [...] by: RADHA YARBROUGH Date: 2022-12-27 06:44 Normal [facility] XR TIB_FIB LT 2Von 3 XR TIB_FIB [...] Jasmyn MANRIQUE Date: 2022-12-24 19:27 Normal [facility] XR WRIST RIGHT (MIN 3 VIEWS) on [...] MD 07/12/19 Edited Result - FINAL Normal [facility] XR WRIST RIGHT (MIN 3 VIEWS) on 07-03-2019 Questionable triquetral fracture. Recommend correlation for point tenderness. [place], [place] EXAM: XR WRIST RIGHT (MIN 3 VIEWS) HISTORY: Reason for exam:->pain s/p fall COMPARISON: None. TECHNIQUE: 3 views of the right wrist. FINDINGS: There is normal mineralization. There is anatomic alignment with a history of triquetral fracture. There is mild soft tissue swelling involving the dorsum of the wrist. [place], [place] Blayne, M[facility]pn Incoming Radiant Results From [employer] - 07/03/2019 11:58 PM EST EXAM: XR WRIST RIGHT (MIN 3 VIEWS) HISTORY: Reason for exam:->pain s/p fall COMPARISON: None. TECHNIQUE: 3 views of the right wrist. FINDINGS: There is normal mineralization. There is anatomic alignment with a history of triquetral fracture. There is mild soft tissue swelling involving the dorsum of the wrist. IMPRESSION: Questionable triquetral fracture. Recommend correlation for point tenderness. [place] Vital Signs Date Time Vital Sign Value Performing Clinician Errol chu 07-03-2019 23:27-0500 Body Temperature 98.49 [degF] [place], [place] 07-03-2019 23:27-0500 BP Diastolic 62 mm[Hg] [place], [place] 07-03-2019 23:27-0500 BP Systolic 128 mm[Hg] [place], [place] 07-03-2019 23:27-0500 Pulse (Heart Rate) 115 /min [place], [place] 07-03-2019 23:27-0500 Pulse Oximetry 100 % [place], [place] 07-03-2019 23:27-0500 Respiratory Rate 17 /min [facility] [place] [place] Encounters Encounter Date Encounter Type Care Provider Facility Start: 09-22-2023 End: 09-22-2023 ambulatory Phyllis Ponce [facility] Work Phone: Start: 09-22-2023 End: 09-22-2023 Departed Referred DPM Phyllis Quintanilla Work Phone: [facility] Start: 08-19-2023 End: 09-18-2023 ambulatory [facility] Start: 07-21-2023 End: 08-18-2023 ambulatory [facility] Start: 01-03-2023 Encounter for other preprocedural examination PHYLLIS Ponce [facility] Start: 01-02-2023 End: 01-03-[address] SKY GRUBBS Facility:[facility] Start: 12-30-2022 End: 12-31-2022 ambulatory PHYLLIS Ponce [facility] Facility:[facility] Start: 12-30-2022 End: 12-31-2022 Encounter for other preprocedural examination PHYLLIS QUINTANILLA Facility:[facility] Start: 12-26-2022 End: 12-27-2022 ambulatory PHYLLIS Ponce [facility] Facility:[facility] Start: 12-25-2022 End: 12-26-2022 ambulatory PHYLLIS Ponce [facility] Facility:[facility] Start: 12-24-2022 End: 12-24-[address] BARBIE BOGGS . Facility:[facility] Start: 07-04-2019 End: 07-04-2019 Emergency department patient visit MELVIN Daniela [facility] Start: 07-03-2019 End: 07-04-2019 Emergency department patient visit Kwaku Suarez [facility] Work Phone: [facility] ED Comment on above: Closed nondisplaced fracture of triquetrum of right wrist, initial encounter (Primary Dx) Procedures Date Procedure Procedure Detail Performing Clinician Start: 07-04-2019 VOLAR OCL SPLINT ARM ALBA PHILLIPS Start: 07-04-2019 Radex wrist complete minimum 3 views KWAKU PHILLIPS Start: 07-03-2019 Radex wrist complete minimum 3 views Kwaku Suarez [facility] Work Phone: Plan of Treatment Date Care Activity Detail Author Start: 04-18-2019 Influenza vaccination Flu vaccine (# 1) [place], [place] Start: 2005 Cervical cancer screen Cervical canc er screen [place], [place] Start: 1999 HIV screen HIV screen [place], [place] Start: 1995 DTaP/Tdap/Td vaccine (1 - Tdap) DTaP/Tdap/Td vaccine (1 - Tdap) [place] Start: 1985 Varicella Vaccine (1 of 2 - 2-dose childhood series) Varicella Vaccine (1 of 2 - 2-dose childhood series) [place] Payers Date Payer Category Payer Self-pay 2023 Unknown [id number] 2019 Unknown [facility] xxxxxxxxxx 2019-Present [phone] [place] [id number] xxxxxxxxxx [id number] 2019 Unknown [id number] 1984 Unknown [id number] 1984 Unknown [id number] 1984 Unknown [id number] 1984 Unknown [id number] 1984 Unknown [id number] 1984 Unknown [id number] 1984 Unknown [id number] 1984 Unknown [id number] 1959 Unknown [id number] Social History Date Type Detail Facility Start: 07-03-2019 Tobacco smoking stat us NHIS Current every day smoker [place], [place] History of tobacco use Cigarette Smoker [place] Start: 07-03-2019 Cigarettes smoked current (pack per day) - Reported [place] Start: 07-03-2019 Alcohol intake Lifetime non-d miguel (finding) [place] Start: 07-03-2019 History SDOH Alcohol Frequency 1 [place] Sex Assigned At Not on file [place] Start: 1985 Sex Assigned At Female [facility] Clinical Note 01-03-2023 Note Date & [...] authenticated by: MARGY NESS Date: 2023-01-03 07:18 [facility] Clinical Note 01-03-2023 Note Date & [...] by: RADHA YARBROUGH Date: 2023-01-03 06:48 [facility] Clinical Note 12-25-2022 Note Date & Type [...] authenticated by: MARGY NESS Date: 2022-12-25 17:45 [facility] Evaluation note Note Date & Type Note Facility Evaluation note No assessment information availa [facility] Work Phone: Discharge Instructions * Attachments The following attachments cannot be sent through Care Everywhere. * Splint or Immobilizer Use (Greek) documented in this encounter Assessments Diagnosis Closed nondisplaced fracture of triquetrum of right wrist, initial encounter- Primary Advance Directives No Advanced Directives Records FoundDocuments on File Type Date Recorded Patient [employer] Expl anation Advance Directives and Living Will Power of Commission Associate Summary Purpose Family History No Family History [...] CREATED AUTHOR AUTHOR'S ORGANIZ ATION 01/27/2023 [facility] DATE CREATED AUTHOR AUTHOR'S ORGANIZ ATION 09/21/2023 [facility] DATE CREATED AUTHOR AUTHOR'S ORGANIZ ATION 09/29/2023 [facility] Care Teams (unrecognized sec tion and content) Team Status: Inactive Member Role Status Dates Phyllis Quintanilla DPM MS Attending Provider Active Start: September 22, 2023 End: September 22, 2023 Goals (unrecognized section and content) Goals may be documented in a n alternate section FOR RECORDS PERTAINING TO PATIENTS WHO ARE [...] BE BASED ON THE PRIMARY CLINICAL RECORDS. [facility]. provides no warranty or guarantee of the accuracy or completeness of information in this document.
== END 2023-11-05 13:54 | disposition home or self-care (01) ==
LOC: EC 13:53
PROVIDERS: Visit Provider Podiatrist Foot & Ankle Surgery
DX: M25.572 Pain in left ankle and joints of left foot (principal); Z98.890 Other specified postprocedural states
CPT/HCPCS: 73610

== ENCOUNTER 2023-12-10 09:22 | Outpatient (OUT) | payer OTHER, SELFPAY ==
--- NOTE | 2023-12-10 | XR_ITS ---
The [address] [address] Patient Name: GENESIS MORALES MRN: [id number] date: 1985 Sex: F Assigned Patient Location: Current Patient Location: Accession/Order Number: [id number] Exam Date: 12/10/2023 09:23 Report Date: 12/11/2023 06:46 At the request of: PHYLLIS CROWLEY Procedure: XR ankle LT min 3V PROCEDURE: XR ankle LT min 3V HISTORY: LEFT ANKLE PAIN COMPARISON: XR ankle left 11/05/2023 FINDINGS: BONES:Mechanical repair of distal tibia via dorsal plate and screws. Mechanical repair of distal fibula via a lateral plate and screws. No appreciable hardware fracture loosening. Partial healing of previously seen bone fractures. Uniform appearance of the ankle joint. SOFT TISSUES:No visible soft tissue swelling. EFFUSION:None visible. OTHER: Negative. XR/XR ankle LT min 3V IMPRESSION: 1. Stable surgical changes without evidence of hardware failure or change in alignment. 2. Suspect ongoing bone healing. Electronically authenticated by: RADHA YARBROUGH Date: 12/11/2023 06:46
--- OUTSIDE RECORDS SUMMARY | 2023-12-10 09:32 | XMS_ITS | CCD ---
Author Organization [facility] Care Team Providers Care Diagnostic Sales Specialist Name Role Phone Unavailable Primary Care Provider UnavailKWAKU Killian Attending Unavailable ROMIE, DR SKY Suarez Admitting Unavailable WEST, DR MARGY Fowler Consulting Unavailable MISC, DR GALARZA Primary Care Unavailable ROMIE, DR SKY Suarez Attending Unavailable ZENON, DR RADHA Newsome Consulting Unavailable NADEREJerod, DR SKY Suarez Consulting Unavailable PHYLLIS QUINTANILLA Consulting Unavailable SONIAKAITLIN Consulting Unavailable BRAN ., WILLA RAMÍREZ Consulting Unavailable THOMAS II, PROSPER Consulting Unavailable OHLIGERTARYN Consulting Unavailable FLAKITA ., DR VALENTIN Attending Unavailable HAY ., DR VALENTIN Admitting Unavailable MISC, DR GALARZA Primary Care Unavailable NEDCHCHE ., ROQUE READ Consulting UnavailJOY Allen Consulting Unavailable PHYLLIS QUINTANILLA Admitting Unavailable SOCORRO, PHYLLIS Ponce Attending Unavailable ROSENDO, DR GALARZA Primary Care Unavailable PHYLLIS QUINTANILLA Attending Unavailable RAJC, DR GALARZA Primary Care Unavailable ZENON, DR RADHA Newsome Consulting Unavailable PHYLLIS QUINTANILLA Admitting Unavailable PHYLLIS QUINTANILLA Consulting Unavailable PHYLLIS QUINTANILLA Attending Unavailable PHYLLIS QUINTANILLA Admitting Unavailable WEST, DR MARGY Fowler Consulting Unavailable MISC, DR GALARZA Primary Care Unavailable PHYLLIS QUINTANILLA Consulting Unavailable Socorro, LOLI Ponce Attending Provider [phone] Phyllis Quintanilla Attending Unavailable Phyllis Quintanilla Admitting Unavailable PHYLLIS QUINTANILLA Referring Unavailable PHYLLIS QUINTANILLA Referring Unavailable NATALI WU Referring Unavailable NATALI WU Referring Unavailable Allergies Allergy Classification Reported Allergen(s) Allergy Type Date of Onset Reaction(s) Facility (1 source) Sulfonamides (Antibiotic) Propensity to adverse reactions to drug 9 Other (See Comments) [facility] [place] (1 source) Sulfonamides (Antibiotic) Drug allergy (disorder) 3 [facility] (1 source) Sulfonamides (Antibiotic); Translations: [SULFA (SULFONAMIDE ANTIBIOTICS)] Propensity to adverse reactions to drug (disorder) 1 [facility] Medications Current Medications Medication Drug [...] foot; Translations: [PAIN IN LEFT ANKLE] Onset: 05-10-2023 Episodic Substance-related disorders (1 source) Nicotine dependence, cigarettes, uncomplicated; Translations: [NICOTINE DEPEND CIGARETTES UNCOMP] Onset: 01-14-2023 Chronic Results Test Name Value Interpretation Reference Range Isaías Jimenez 09-22-2023 L Specimen: [id number] Received: 09/23/23 Status: ROMEO Talbot Num: [id number] Spec Type: Surgical Subm Dr: Phyllis Quintanilla DPM, MS Tissues: A Bone Fragments - Pathologic Fracture (LT FIBULA FX) Procedures: HE/2, Gross/Micro L5, Decalcification Age/ Patient Sex Location Account Attending Physician Lexy Lira 38/F [place] [id number] Phyllis Quintanilla DPM, MS SPEC NUM: [id number] RECD: 09/23/23 STATUS: ROMEO TALBOT NUM: [id number] TILA: 09/22/[address]: Phyllis Quintanilla DPM, MS ENTERED: 09/23/[address]: True Durant SPEC TYPE: Surgical DEPT: [...] in one cassette labeled A1. CPT Codes 05507, 67574 -------- -------- Specimen: [id number] Received: 09/23/23-1238 Status: ROMEO Talbot Num: [id number] Spec Type: Surgical Subm Dr: Phyllis Quintanilla,LOLI, MS Tissues: A Bone Fragments - Pathologic Fracture (LT FIBULA FX) Procedures: HE/2, Gross/Micro L5, Decalcification -------- Patient: Lexy Lira [id number] (Continued) -------- Signed (signature on file) Lewis Hobbs MD 09/27/[address] [facility] CBC AUTO DIFFon 01-02-2023 BASO # 0.1 103/ul Normal 0.0-0.1 [facility] Comment on above: Performed By: #### C BC #### [facility] [address] [address] [address] Jesse Forrest Basophils/100 WBC (Bld) 0.4 % Normal 0.2-2.0 [facility] Comment on above: Performed By: #### C BC #### [facility] [address] [place] [address] Dr. Jesse Forrest EO # 0.3 103/ul Normal 0.0-0.7 [facility] Comment on above: Performed By: #### C BC #### [facility] [address] [place] [address] Dr. Jesse Forrest Eosinophils/100 WBC (Bld) 3.0 % Normal 0.9-7.0 [facility] Comment on above: Performed By: #### C BC #### [facility] [address] [place] [address] Dr. Jesse Forrest Erythrocyte distribution width (RBC) [Ratio] 13.1 % Normal 11.0-15.0 [facility] Comment on above: Performed By: #### C BC #### [facility] [address] [place] [address] Dr. Jesse Forrest Hematocrit (Bld) [Volume fraction] 43.1 % Normal 36.0-48.0 [facility] Comment on above: Performed By: #### C BC #### [facility] [address] [place] [address] Dr. Jesse Forrest Hemoglobin (Bld) [Mass/Vol] 14.3 g/dL Normal 12.0-16.0 [facility] Comment on above: Performed By: #### C BC #### [facility] [address] [place] [address] Dr. Jesse Forrest IG # 0.05 10e3/ul Critically high 0.00-0.03 [facility] Comment on above: Performed By: #### C BC #### [facility] [address] [place] [address] Dr. Jesse Forrest IG % 0.4 % Normal 0.0-0.5 [facility] Comment on above: Performed By: #### C BC #### [facility] [address] [place] [address] Dr. Jesse Forrest LYMPH # 2.4 103/ul Normal 1.2-3.8 [facility] Comment on above: Performed By: #### C BC #### [facility] [address] [place] [address] Dr. Jesse Forrest Lymphocytes/100 WBC (Bld) 21.1 % Normal 20.5-60.0 [facility] Comment on above: Performed By: #### C BC #### [facility] [address] [place] [address] Dr. Jesse Forrest MANUAL DIFF REQ NO Normal [facility] Comment on above: Performed By: #### C BC #### [facility] [address] [address] [address] Jesse Forrest MCH (RBC) [Entitic mass] 28.4 pg Normal 26.7-34.0 [facility] Comment on above: Performed By: #### C BC #### [facility] [address] [place] [address] Dr. Jesse Forrest MCHC (RBC) [Mass/Vol] 33.2 g/dL Normal 29.9-35.2 [facility] Comment on above: Performed By: #### C BC #### [facility] [address] [place] [address] Dr. Jesse Forrest MCV (RBC) [Entitic vol] 85.7 fL Normal 81.0-99.0 [facility] Comment on above: Performed By: #### C BC #### [facility] [address] [place] [address] Dr. Jesse Forrest MONO # 0.8 103/ul Normal 0.3-0.8 [facility] Comment on above: Performed By: #### C BC #### [facility] [address] [place] [address] Dr. Jesse Forrest Monocytes/100 WBC (Bld) 6.9 % Normal 1.7-12.0 [facility] Comment on above: Performed By: #### C BC #### [facility] [address] [place] [address] Dr. Jesse Forrest NEUT # 7.6 103/ul Critically high 1.4-6.5 [facility] Comment on above: Performed By: #### C BC #### [facility] [address] [place] [address] Dr. Jesse Forrest Neutrophils/100 WBC (Bld) 68.2 % Normal 43.0-75.0 [facility] Comment on above: Performed By: #### C BC #### [facility] [address] [place] [address] Dr. Jesse Forrest Platelet mean volume (Bld) [Entitic vol] 10.3 fL Normal 9.5-13.5 [facility] Comment on above: Performed By: #### C BC #### [facility] [address] [place] [address] Dr. Jesse Forrest PLT 284 103/ul Normal 150-450 [facility] Comment on above: Performed By: #### C BC #### [facility] [address] [place] [address] Dr. Jesse Forrest RBC 5.03 106/ul Normal 4.20-5.40 [facility] Comment on above: Performed By: #### C BC #### [facility] [address] [place] [address] Dr. Jesse Forrest WBC 11.2 103/ul Critically high 4.0-11.0 [facility] Comment on above: Performed By: #### C BC #### [facility] [address] [place] [address] Dr. Jesse Forrest POINT OF CARE GLUCOSEon 12-16 Glucose [Mass/Vol] 138 mg/dL Critically high 74-106 [facility] Comment on above: Performed By: #### P OCGLUC #### [facility] [address] [place] [address] Dr. Jesse Forrest Glucose [Mass/Vol] 105 mg/dL Normal 74-106 [facility] Comment on above: Performed By: #### P OCGLUC #### [facility] [address] [place] [address] Dr. Jesse Forrest PREG HCG QUALon 01-02-2023 , QUAL Negative Normal NEGATIVE [facility] Comment on above: Performed By: #### P REG #### [facility] [address] [place] [address] ANKLE LT WO [...] RADHA YARBROUGH Date: 2022-12-27 06:44 Normal [facility] XR TIB_FIB LT 2Von 3 XR TIB_FIB [...] Jasmyn MANRIQUE Date: 2022-12-24 19:27 Normal [facility] XR WRIST RIGHT (MIN 3 VIEWS) on [...] MD 07/12/19 Edited Result - FINAL Normal [facility] XR WRIST RIGHT (MIN 3 VIEWS) on 07-03-2019 Questionable triquetral fracture. Recommend correlation for point tenderness. [place], [place] EXAM: XR WRIST RIGHT (MIN 3 VIEWS) HISTORY: Reason for exam:->pain s/p fall COMPARISON: None. TECHNIQUE: 3 views of the right wrist. FINDINGS: There is normal mineralization. There is anatomic alignment with a history of triquetral fracture. There is mild soft tissue swelling involving the dorsum of the wrist. [place], [place] Blayne, Tiffany Incoming Radiant Results From [facility] - 07/03/2019 11:58 PM EST EXAM: XR WRIST RIGHT (MIN 3 VIEWS) HISTORY: Reason for exam:->pain s/p fall COMPARISON: None. TECHNIQUE: 3 views of the right wrist. FINDINGS: There is normal mineralization. There is anatomic alignment with a history of triquetral fracture. There is mild soft tissue swelling involving the dorsum of the wrist. IMPRESSION: Questionable triquetral fracture. Recommend correlation for point tenderness. [place], [place] Vital Signs Date Time Vital Sign Value Performing Clinician Errol chu 07-03-2019 23:27-0500 Body Temperature 98.49 [degF] [place], [place] 07-03-2019 23:27-0500 BP Diastolic 62 mm[Hg] [place], [place] 07-03-2019 23:27-0500 BP Systolic 128 mm[Hg] [place] 07-03-2019 23:27-0500 Pulse (Heart Rate) 115 /min [place], [place] 07-03-2019 23:27-0500 Pulse Oximetry 100 % [facility] [place], [place] 07-03-2019 23:27-0500 Respiratory Rate 17 /min [facility], [place] Encounters Encounter Date Encounter Type Care Provider Facility Start: 11-17-2023 ambulatory PHYLLIS Ponce [facility] Start: 11-06-2023 End: 11-17-2023 ambulatory [facility] Rosario [facility] Start: 09-22-2023 End: 09-22-2023 ambulatory Phyllis Rosario [facility] Work Phone: Start: 09-22-2023 End: 09-22-2023 Departed Referred DPM [facility] Work Phone: [facility] Path [facility] Start: 08-19-2023 End: 09-18-2023 ambulatory [facility] Start: 07-21-2023 End: 08-18-2023 ambulatory [facility] Start: 01-03-2023 Encounter for other preprocedural examination PHYLLIS Rosario [facility] Start: 01-02-2023 End: 01-03-[address] SKY GRUBBS Facility:H1 Start: 12-30-2022 End: 12-31-2022 ambulatory PHYLLIS Ponce [facility] Facility:[facility]1 Start: 12-30-2022 End: 12-31-2022 Encounter for other preprocedural examination PHYLLIS QUINTANILLA Facility:[facility]1 Start: 12-26-2022 End: 12-27-2022 ambulatory PHYLLIS Ponce [facility] Facility:H1 Start: 12-25-2022 End: 12-26-2022 ambulatory PHYLLIS Ponce [facility] Facility:H1 Start: 12-24-2022 End: 12-24-[address] BARBIE Lang Facility:[facility]1 Start: 07-04-2019 End: 07-04-2019 Emergency department patient visit [facility] Start: 07-03-2019 End: 07-04-2019 Emergency department patient visit [place] [facility] Work Phone: [facility] ED Comment on above: Closed nondisplaced fracture [...] 04-18-2019 Influenza vaccination Flu vaccine (# 1) [place], [place] Start: 2005 Cervical cancer screen Cervical canc er screen [place], [place] Start: 1999 HIV screen HIV screen [place], [place] Start: 1995 DTaP/Tdap/Td vaccine (1 - Tdap) DTaP/Tdap/Td vaccine (1 - Tdap) [place], [place] Start: 1985 Varicella Vaccine (1 of 2 - 2-dose childhood series) Varicella Vaccine (1 of 2 - 2-dose childhood series) [place] Payers Date Payer Category Payer Self-pay 2023 Unknown [id number] 2019 Unknown [facility] xxxxxxxxxx 2019-Present [phone] [address] [place] [address] xxxxxxxxxx [id number] 2019 Unknown [id number] 1984 Unknown [id number] 1984 Unknown [id number] 1984 Unknown [id number] 1984 Unknown [id number] 1984 Unknown [id number] 1984 Unknown [id number] 1984 Unknown [id number] 1984 Unknown [id number] 1984 Unknown [id number] 1984 Unknown [id number] 1959 Unknown [id number] Social History Date Type Detail Facility Start: [facility]03[facility] [place] History of tobacco use Cigarette Smoker M [place], [place] Start: 07-03-2019 Cigarettes smoked current (pack per day) - Reported [place], [place] Start: 07-03-2019 Alcohol intake Lifetime non-d miguel (finding) [place], [place] Start: 07-03-2019 History SDOH Alcohol Frequency 1 [place], [place] Sex Assigned At Not on file [place] Start: 1985 Sex Assigned At Female F [facility] Clinical Note 01-03-2023 Note Date & [...] authenticated by: MARGY NESS Date: 2023-01-03 07:18 [facility] Clinical Note 01-03-2023 Note Date & [...] authenticated by: RADHA YARBROUGH Date: 2023-01-03 06:48 [facility] Clinical Note 12-25-2022 Note Date & [...] by: MARGY NESS Date: 2022-12-25 17:45 [facility] Evaluation note Note Date & Type Note Facility Evaluation note No assessment information availa [facility] Work Phone: Discharge Instructions * Attachments The following attachments cannot be sent through Care Everywhere. 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 [facility] provides no warranty or guarantee of the accuracy or completeness of information in this document.
== END 2023-12-10 09:23 | disposition home or self-care (01) ==
LOC: EC 09:22
PROVIDERS: Visit Provider Podiatrist Foot & Ankle Surgery
DX: S93.05XD Dislocation of left ankle joint, subsequent encounter (principal); Z98.890 Other specified postprocedural states
CPT/HCPCS: 73610

== ENCOUNTER 2024-03-24 14:46 | Outpatient (OUT) | payer OTHER, SELFPAY ==
--- NOTE | 2024-03-24 | XR_ITS ---
The [address] [address] Patient Name: GENESIS MORALES MRN: [id number] date: 1985 Sex: F Assigned Patient Location: Current Patient Location: Accession/Order Number: [id number] Exam Date: 03/24/2024 14:46 Report Date: 03/29/2024 11:28 At the request of: PHYLLIS CROWLEY Procedure: XR ankle LT min 3V PROCEDURE: XR ankle LT min 3V COMPARISON: 12/10/2023 HISTORY: LEFT ANKLE PAIN FINDINGS: BONES:Stable healing distal tibia and fibular fractures with internal fixation utilizing a lateral plate along the fibula with posterior plates. No mechanical failure. SOFT TISSUES:Negative. No visible soft tissue swelling. EFFUSION:None visible. OTHER: Negative. XR/XR ankle LT min 3V IMPRESSION: Stable healing fractures with internal fixation Electronically authenticated by: MARGY NESS Date: 03/29/2024 11:28
--- OUTSIDE RECORDS SUMMARY | 2024-03-24 14:51 | XMS_ITS | CCD ---
Author Organization [facility] Care Team Providers Care [employer] Name Role Phone Unavailable Primary Care Provider UnavailKWAKU Killian Attending Unavailable ROMIE, DR SKY Suarez Admitting Unavailable WEST, DR MARGY Fowler Consulting Unavailable ROSENDO, DR GALARZA Primary Care Unavailable ROMIE, DR SKY Suarez Attending Unavailable ZENON, DR RADHA Newsome Consulting Unavailable ROMIE, DR SKY Suarez Consulting Unavailable PHYLLIS QUINTANILLA Consulting Unavailable SONIA, KAITLIN Consulting Unavailable BRAN ., WILLA RAMÍREZ Consulting Unavailable THOMAS II, PROSPER Consulting Unavailable OHLIGERTARYN Consulting Unavailable HAY ., DR VALENTIN Attending Unavailable HAY ., DR VALENTIN Admitting Unavailable MISC, DR GALARZA Primary Care Unavailable ISABEL ., ROQUE READ Consulting UnavailJOY Allen Consulting Unavailable PHYLLIS QUINTANILLA Admitting Unavailable PHYLLIS QUINTANILLA Attending Unavailable ROSENDO, DR GALARZA Primary Care Unavailable PHYLLIS QUINTANILLA Attending Unavailable ROSENDO, DR GALARZA Primary Care Unavailable ZENON, DR RADHA Newsome Consulting Unavailable PHYLLIS QUINTANILLA Admitting Unavailable PHYLLIS QUINTANILLA Consulting Unavailable PHYLLIS QUINTANILLA Attending Unavailable PHYLLIS QUINTANILLA Admitting Unavailable THI, DR MARGY Fowler Consulting Unavailable MISTee, DR GALARZA Primary Care Unavailable PHYLLIS QUINTANILLA Consulting Unavailable LOLI Quintanilla Attending Provider [phone] Phyllis Quintanilla Attending Unavailable Phyllis Quintanilla Admitting Unavailable PHYLLIS QUINTANILLA Referring Unavailable PHYLLIS QUINTANILLA Referring Unavailable NATALI WU Referring Unavailable NATALI WU Referring Unavailable PHYLLIS QUINTANILLA Referring Unavailable Allergies Allergy Classification Reported Allergen(s) Allergy Type Date of Onset Reaction(s) Facility Sulfonamides (antibiotic) (1 source) Sulfonamides (Antibiotic); Translations: [SULFA (SULFONAMIDE ANTIBIOTICS)] Drug Allergy [facility] (1 source) Sulfonamides (Antibiotic) Propensity to adverse reactions to drug 9 Other (See Comments) [facility] [place] (1 source) Sulfonamides (Antibiotic) Drug allergy (disorder) 3 [facility] Medications Current Medications Medication Drug Class(es) [...] [id number] Received: 09/23/23 Status: ROMEO Talbot Num: [id number] Spec Type: Surgical Subm Dr: Phyllis Quintanilla DPM, [place] Tissues: A Bone Fragments - Pathologic Fracture (LT FIBULA FX) Procedures: HE/2, Gross/Micro L5, Decalcification Age/ Patient Sex Location Account Attending Physician Lexy Morales 38/F LABELL [id number] Phyllis Quintanilla DPM, [place] SPEC NUM: [id number] RECD: 09/23/23 STATUS: ROMEO TALBOT NUM: [id number] TILA: 09/22/[address]: Phyllis Quintanilla DPM, [place] ENTERED: 09/23/23 [facility] DR: Bhargav,Lab SPEC TYPE: Surgical DEPT: JAKOB NATHAN ORDERED: [...] in one cassette labeled A1. CPT Codes 31886, 39451 -------- -------- Specimen: [id number] Received: 09/23/23-1238 Status: ROMEO Talbot Num: [id number] Spec Type: Surgical Subm Dr: Phyllis Quintanilla,DPBabar, [place] Tissues: A Bone Fragments - Pathologic Fracture (LT FIBULA FX) Procedures: HE/2, Gross/Micro L5, Decalcification -------- Patient: Lexy Morales [id number] (Continued) -------- Signed (signature on file) Lewis Hobbs MD 09/27/23 1024 Normal [facility] CBC AUTO DIFFon 01-02-2023 BASO # 0.1 103/ul Normal 0.0-0.1 [facility] Comment on above: Performed By: #### C BC #### [facility] [address] [address] [address] Jesse Forrest Basophils/100 WBC (Bld) 0.4 % Normal 0.2-2.0 [facility] Comment on above: Performed By: #### C BC #### [facility] [address] [place] [address] Dr. Jesse Forrest EO # 0.3 103/ul Normal 0.0-0.7 [facility] Comment on above: Performed By: #### C BC #### [facility] [address] [place] [address] Dr. Jesse Forrest Eosinophils/100 WBC (Bld) 3.0 % Normal 0.9-7.0 [facility] Comment on above: Performed By: #### C BC #### [facility] [address] [place] [address] Dr. Jesse Forrest Erythrocyte distribution width (RBC) [Ratio] 13.1 % Normal 11.0-15.0 [facility] Comment on above: Performed By: #### C BC #### [facility] [address] [place] [address] Dr. Jesse Forrest Hematocrit (Bld) [Volume fraction] 43.1 % Normal 36.0-48.0 [facility] Comment on above: Performed By: #### C BC #### [facility] [address] [place] [address] Dr. Jesse Forrest Hemoglobin (Bld) [Mass/Vol] 14.3 g/dL Normal 12.0-16.0 [facility] Comment on above: Performed By: #### C BC #### [facility] [address] [place] [address] Dr. Jesse Forrest IG # 0.05 10e3/ul Critically high 0.00-0.03 [facility] Comment on above: Performed By: #### C BC #### [facility] [address] [place] [address] Dr. Jesse Forrest IG % 0.4 % Normal 0.0-0.5 [facility] Comment on above: Performed By: #### C BC #### [facility] [address] [place] [address] Dr. Jesse Forrest LYMPH # 2.4 103/ul Normal 1.2-3.8 [facility] Comment on above: Performed By: #### C BC #### [facility] [address] [address] [address] Jesse Forrest Lymphocytes/100 WBC (Bld) 21.1 % Normal 20.5-60.0 [facility] Comment on above: Performed By: #### C BC #### [facility] [address] [address] [address] Jesse Forrest MANUAL DIFF REQ NO Normal [facility] Comment on above: Performed By: #### C BC #### [facility] [address] [place] [address] Dr. Jesse Forrest MCH (RBC) [Entitic mass] 28.4 pg Normal 26.7-34.0 [facility] Comment on above: Performed By: #### C BC #### [facility] [address] [place] [address] Dr. Jesse Forrest MCHC (RBC) [Mass/Vol] 33.2 g/dL Normal 29.9-35.2 [facility] Comment on above: Performed By: #### C BC #### [facility] [address] [place] [address] Dr. Jesse Forrest MCV (RBC) [Entitic vol] 85.7 fL Normal 81.0-99.0 [facility] Comment on above: Performed By: #### C BC #### [facility] [address] [place] [address] Dr. Jesse Forrest MONO # 0.8 103/ul Normal 0.3-0.8 [facility] Comment on above: Performed By: #### C BC #### [facility] [address] [place] [address] Dr. Jesse Forrest Monocytes/100 WBC (Bld) 6.9 % Normal 1.7-12.0 [facility] Comment on above: Performed By: #### C BC #### [facility] [address] [place] [address] Dr. Jesse Forrest NEUT # 7.6 103/ul Critically high 1.4-6.5 [facility] Comment on above: Performed By: #### C BC #### [facility] [address] [address] [address] Jesse Forrest Neutrophils/100 WBC (Bld) 68.2 % Normal 43.0-75.0 [facility] Comment on above: Performed By: #### C BC #### [facility] [address] [address] [address] Jesse Forrest Platelet mean volume (Bld) [Entitic vol] 10.3 fL Normal 9.5-13.5 [facility] Comment on above: Performed By: #### C BC #### [facility] [address] [address] [address] Jesse Forrest PLT 284 103/ul Normal 150-450 [facility] Comment on above: Performed By: #### C BC #### [facility] [address] [place] [address] Dr. Jesse Forrest RBC 5.03 106/ul Normal 4.20-5.40 [facility] Comment on above: Performed By: #### C BC #### [facility] [address] [address] [address] Jesse Forrest WBC 11.2 103/ul Critically high 4.0-11.0 [facility] Comment on above: Performed By: #### C BC #### [facility] [address] [place] [address] Dr. Jesse Forrest POINT OF CARE GLUCOSEon 12-16 Glucose [Mass/Vol] 138 mg/dL Critically high 74-106 [facility] Comment on above: Performed By: #### P OCGLUC #### [facility] [address] [place] [address] Dr. Jesse Forrest Glucose [Mass/Vol] 105 mg/dL Normal 74-106 [facility] Comment on above: Performed By: #### P OCGLUC #### [facility] [address] [place] [address] Dr. Jesse Forrest PREG HCG QUALon 01-02-2023 , QUAL Negative Normal NEGATIVE [facility] Comment on above: Performed By: #### P REG #### [facility] [address] [place] [address] ANKLE LT WO [...] RADHA YARBROUGH Date: 2022-12-27 06:44 Normal [facility] XR TIB_FIB LT 2Von 3 [...] Jasmyn MANRIQUE Date: 2022-12-24 19:27 Normal [facility] XR WRIST RIGHT (MIN 3 [...] MD 07/12/19 Edited Result - FINAL Normal [facility] XR WRIST RIGHT (MIN 3 VIEWS) on 07-03-2019 Questionable triquetral fracture. Recommend correlation for point tenderness. [place], [place] EXAM: XR WRIST RIGHT (MIN 3 VIEWS) HISTORY: Reason for exam:->pain s/p fall COMPARISON: None. TECHNIQUE: 3 views of the right wrist. FINDINGS: There is normal mineralization. There is anatomic alignment with a history of triquetral fracture. There is mild soft tissue swelling involving the dorsum of the wrist. [place], [place], M[facility] Incoming Radiant Results From [employer] - 07/03/2019 11:58 PM EST EXAM: XR WRIST RIGHT (MIN 3 VIEWS) HISTORY: Reason for exam:->pain s/p fall COMPARISON: None. TECHNIQUE: 3 views of the right wrist. FINDINGS: There is normal mineralization. There is anatomic alignment with a history of triquetral fracture. There is mild soft tissue swelling involving the dorsum of the wrist. IMPRESSION: Questionable triquetral fracture. Recommend correlation for point tenderness. [place], [place] Vital Signs Date Time Vital Sign Value Performing Clinician Errol chu 07-03-2019 23:27-0500 Body Temperature 98.49 [degF] [place], [place] 07-03-2019 23:27-0500 BP Diastolic 62 mm[Hg] [place], [place] 07-03-2019 23:27-0500 BP Systolic 128 mm[Hg] [place] 07-03-2019 23:27-0500 Pulse (Heart Rate) 115 /min [place] 07-03-2019 23:27-0500 Pulse Oximetry 100 % [facility], [place] 07-03-2019 23:27-0500 Respiratory Rate 17 /min [facility], [place]UAN Encounters Encounter Date Encounter Type Care Provider Facility Start: 12-18-2023 End: 01-17-2024 ambulatory [facility] Rosario [facility] Start: 11-17-2023 End: 12-17-2023 ambulatory [facility] Rosario [facility] Start: 11-06-2023 End: 11-17-2023 ambulatory [facility] Rosario [facility] Start: 09-22-2023 End: 09-22-2023 ambulatory Phyllis Ponce [facility] Work Phone: Start: 09-22-2023 End: 09-22-2023 [facility] Start: 08-19-2023 End: 09-18-2023 ambulatory [facility] Start: 07-21-2023 End: 08-18-2023 ambulatory [facility] Start: 01-03-2023 Encounter for other preprocedural examination [facility] Rosario [facility] Start: 01-02-2023 End: 01-03-[address] SKY GRUBBS Facility:[facility] Start: 12-30-2022 End: 12-31-2022 ambulatory PHYLLIS Ponce [facility] Facility:[facility] Start: 12-30-2022 End: 12-31-2022 Encounter for other preprocedural examination PHYLLIS QUINTANILLA Facility:[facility] Start: 12-26-2022 End: 12-27-2022 ambulatory PHYLLIS Ponce [facility] Facility:[facility] Start: 12-25-2022 End: 12-26-2022 ambulatory PHYLLIS Ponce [facility] Facility:[facility] Start: 12-24-2022 End: 12-24-[address] BARBIE Lang Facility:[facility] Start: 07-04-2019 End: 07-04-2019 Emergency department patient visit [place] Daniela [facility] Start: 07-03-2019 End: 07-04-2019 Emergency department patient visit Kwaku Phillips Work Phone: [facility] ED Comment on above: Closed nondisplaced [...] 04-18-2019 Influenza vaccination Flu vaccine (# 1) [place], [place] Start: 2005 Cervical cancer screen [facility] screen [place] Start: 1999 HIV screen HIV screen [place], [place] Start: 1995 DTaP/Tdap/Td vaccine (1 - Tdap) DTaP/Tdap/Td vaccine (1 - Tdap) [place] Start: 1985 Varicella Vaccine (1 of 2 - 2-dose childhood series) Varicella Vaccine (1 of 2 - 2-dose childhood series) [place] Payers Date Payer Category Payer Self-pay 2023 Unknown [id number] 2019 Unknown [facility] xxxxxxxxxx 2019-Present [phone] [place] [id number] xxxxxxxxxx [id number] 2019 Unknown [id number] 1984 Unknown [id number] 1984 Unknown [id number] [id number] 1984 Unknown [id number] 1984 Unknown [id number] 1984 Unknown [id number] [id number] 1984 Unknown [id number] [id number] 1984 Unknown [id number] [id number] 1984 Unknown [id number] [id number] 1984 Unknown [id number] [id number] 1984 Unknown [id number] [id number] 1984 Unknown [id number] 1959 Unknown [id number] Social History Date Type Detail Facility Start: 07-03-2019 [facility] sm[facility] [place] History of tobacco use Cigarette Smoker M [place], [place] Start: 07-03-2019 Cigarettes smoked current (pack per day) - Reported [place] Start: 07-03-2019 Alcohol intake Lifetime non-d miguel (finding) [place] Start: 07-03-2019 History SDOH Alcohol Frequency 1 [place] Sex Assigned At Not on file [place] Start: 1985 Sex Assigned At Female F [facility] Clinical Note 01-03-2023 Note Date & [...] authenticated by: MARGY NESS Date: 2023-01-03 07:18 [facility] Clinical Note 01-03-2023 Note Date [...] by: RADHA YARBROUGH Date: 2023-01-03 06:48 [facility] Clinical Note 12-25-2022 Note Date [...] by: MARGY NESS Date: 2022-12-25 17:45 [facility] Evaluation note Note Date & Type Note Facility Evaluation note No assessment information availa [facility] Work Phone: Discharge Instructions * Attachments The following attachments cannot be sent through Care Everywhere. * Splint or Immobilizer Use (Yoruba) documented in this encounter Assessments Diagnosis Closed nondisplaced fracture of triquetrum of right wrist, initial encounter- Primary Advance Directives No Advanced Directives Records FoundDocuments on File Type Date Recorded Patient Service Delivery Analyst Expl anation Advance Directives and Living Will Power of Jewelry Repairer Summary Purpose Family History No Family History [...] AUTHOR AUTHOR'S ORGANIZ ATION 01/27/2023 [facility] DATE CREATED AUTHOR AUTHOR'S ORGANIZ ATION 09/29/2023 [facility] DATE CREATED AUTHOR AUTHOR'S ORGANIZ ATION 01/18/2024 [facility] Care Teams (unrecognized sec tion and content) [...] BE BASED ON THE PRIMARY CLINICAL RECORDS. [facility]. provides no warranty or guarantee of the accuracy or completeness of information in this document.
== END 2024-03-24 14:47 | disposition home or self-care (01) ==
LOC: EC 14:46
PROVIDERS: Visit Provider Podiatrist Foot & Ankle Surgery
DX: M25.572 Pain in left ankle and joints of left foot (principal); S89.1 Physeal fracture of lower end of tibia; S89.392D Other physeal fracture of lower end of left fibula, subsequent encounter for fracture with routine healing
CPT/HCPCS: 73610